=== PATIENT | male | born 1960 | race Caucasian/White ===

== ENCOUNTER 2016-09-15 09:07 | Inpatient (IN) | payer OTHER, MEDICAID ==
--- NOTE | 2016-09-15 09:30 | EDPHY ---
H & P HPI/ROS: CHIEF COMPLAINT: right leg pain and swelling HISTORY OF PRESENT ILLNESS: The Patient is a 55-year-old blind homeless male who presents to the emergency department with right leg pain and swelling. His pain is moderate. It does not radiate. He states that a few weeks ago he fell down some stairs and injured his right lower leg. Since that time he states he has fallen a few more times. Patient denies increasing pain in his right lower leg. Someone noticed that he had bleeding in his right lower extremity and called EMS. Patient denies fevers or chills. No cough or shortness of breath. No nausea or vomiting. Patient denies alcohol use. The patient recently saw smoking. He denies drug use. Patient denies any previous medical issues. He has not had any medical care for this wound. He states he would come in earlier but he did not see it because he was blind. REVIEW OF SYSTEMS: My complete review of systems is negative except as mentioned in the HPI. Past Medical/Surgical History: Denies Past surgical history: Denies Social history: The patient denies drugs or alcohol. He recently stopped smoking. The patient is homeless. Smoking Status: Heavy smoker Physical Exam: Vitals noted GENERAL: No acute distress, alert. HEENT: Normal pharynx, no signs of dehydration. NECK: Supple. Normal. RESPIRATORY: Clear to auscultation bilaterally, no rales, rhonchi or wheezing. CVS: Regular rhythm tachycardia, no rubs, murmurs, or gallops. ABDOMEN: Soft, nontender, nondistended. BACK: Normal to inspection, no CVA tenderness. SKIN: Normal color, no rash, warm, dry. No pallor. EXTREMITIES: Patient has a swollen right lower extremity. There is anterior macerated skin. This has deep, dark discoloration. There is surrounding tissue breakdown. The right lower extremity below the knee is tender to touch. There is no palpable cord. Patient's upper leg has no redness, streaking or tenderness palpation NEURO/PSYCH: Alert and oriented, normal mood and affect, normal motor sensory exam. Constitutional: Initial Vital Signs Temperature (C) 36.4 C 09/15/16 09:10 Heart Rate 123 H 09/15/16 09:10 Respiratory Rate 18 09/15/16 09:10 Blood Pressure 116/73 09/15/16 09:10 O2 Sat (%) 99 01/16/17 09:10 O2 Delivery Mode Nasal Cannula O2 (L/minute) 2 Allergies/Adverse Reactions: No Known Allergies Allergy (Verified 09/15/16 09:25) Home Medications: Medication Instructions Recorded NK [No Known Home Meds] 09/15/16 Medical Decision Making ED Course/Re-evaluation: In the emergency department I met EMS on arrival. I took report from the pattern changer. An IV was placed. Laboratory studies including cultures were obtained. Patient was noted to be tachycardic with are in the 120s. His blood pressure is 116/73. Staff finishing obtaining cultures. Ertapenem 1 g IV and vancomycin 1 g IV ordered. 1000: [place] [address]. When rechecked the patient. He is lying comfortably in his bed. His wound has been cleaned. Lactic acid is still pending. I discussed this with the nursing staff. It was just sent to the lab. Patient is now starting his 1st L of normal saline for hydration. I discussed case with the hospitalist service. Dr. Caldwell will accept the patient. He will go to step-down. Lactic acid came back elevated at 2.2. The patient is tachycardic with an elevated white count and elevated lactic acid. Severe sepsis was declared. The patient was given a total of 30 milliliters/kilogram of IV hydration. ( Initial NS 1 L plus additional order of NS 1.25 L). I discussed the case with Dr. Roni Mai. He infectious Disease will consult on the patient. I rechecked the patient. He has nearly completed his fluid bolus. I discussed with the nurse obtain lactic acid after the fluid is complete. Patient is still tachycardic. No new complaints. Ultrasound: Please refer to the dictated report by Dr. Parada. No DVT. There is a superficial vein occlusion. Patient does have fluid collection inferior to the patella anterior to the tibia. This could represent abscess. I paged general surgery and spoke with Dr. Wolfe. He will consult on the patient. Differential Diagnosis: My differential includes but is not limited to cellulitis, abscess, compartment syndrome, DVT, arterial occlusion, gas gangrene, bacteremia, sepsis Critical Care Time: Patient required 35 minutes of critical care time. This was exclusive of any on unbundled procedure. This was due the patient's significant extremity infection, abnormal vital signs, elevated lactic acid, need for frequent rechecks and admission to step-down unit. - Data Points Laboratory Results: Laboratory Results 09/15/16 09:00 09/15/16 09:00 09/15/16 09/15/16 09:50 09:00 WBC 37.90 H 10^3/uL (3.80-9.50) RBC 4.62 10^6/uL (4.40-6.38) Hgb 13.7 g/dL (13.7-17.5) Hct 39.5 L % (40.0-51.0) MCV 85.5 fL (81.5-99.8) MCH 29.7 pg (27.9-34.1) MCHC 34.7 g/dL (32.4-36.7) RDW 12.7 % (11.5-15.2) Plt Count 502 H 10^3/uL (150-400) MPV 9.2 fL (8.7-11.7) Neut % (Auto) Not Reported Lymph % (Auto) Not Reported [place] % (Auto) Not Reported Eos % (Auto) Not Reported Baso % (Auto) Not Reported Nucleat RBC Rel Count 0.0 % (0.0-0.2) Absolute Neuts (auto) Not Reported Absolute Lymphs (auto) Not Reported Absolute Monos (auto) Not Reported Absolute Eos (auto) Not Reported Absolute Basos (auto) Not Reported Absolute Nucleated RBC 0.00 10^3/uL (0-0.01) Immature Gran % Not Reported Seg Neutrophils % 39 % Band Neutrophils % 50 % Lymphocytes % 5 % Monocytes % 2 % Metamyelocytes % 3 % Myelocytes % 1 % Immature Gran # Not Reported Absolute Seg Neuts 14.78 H 10^/uL (1.70-6.50) Absolute Band Neuts 18.95 H 10^3/uL (0.00-0.70) Absolute Lymphocytes 1.90 10^3/uL (1.00-3.00) Absolute Monocytes 0.76 10^3/uL (0.30-0.80) Absolute Metamyelocyte 1.14 H 10^3/mL (0.00-0.00) Absolute Myelocytes 0.38 H 10^3/mL (0.00-0.00) RBC/WBC/PLT Morphology NORMAL (NORMAL) Platelet Estimate INCREASED H (ADEQ) Smear Review By Pending PT 17.1 H SEC (12.0-15.0) INR 1.40 H (0.83-1.16) APTT 33.6 SEC (23.0-38.0) VBG Lactic Acid 2.2 H mmol/L (0.7-2.1) Sodium 131 L mEq/L (134-144) Potassium 4.5 mEq/L (3.5-5.2) Chloride 94 L mEq/L (97-110) Carbon Dioxide 22 mEq/l (22-31) Anion Gap 15 mEq/L (8-16) BUN 62 H mg/dL (7-23) Creatinine 1.6 H mg/dL (0.7-1.3) Estimated GFR 45 Glucose 106 H mg/dL (70-100) Calcium 9.1 mg/dL (8.5-10.4) Total Bilirubin 1.0 mg/dL (0.1-1.4) Medications Given: Discontinued Medications Vancomycin/Sodium Chloride (Vancomycin 1 Gm (Premix)) 250 mls @ 250 mls/hr IV EDNOW ONE PRN Reason: Protocol Stop: 09/15/16 11:00 Last Admin: 09/15/16 10:15 Dose: 250 mls Sodium Chloride (Ns) 1,000 mls @ 0 mls/hr IV ONCE ONE PRN Reason: Wide Open Stop: 09/15/16 10:07 Last Admin: 09/15/16 10:00 Dose: 1,000 mls Sodium Chloride (Ns *For Sepsis Order Set Only*) 1,250 ml IV EDNOW ONE Stop: 09/15/16 10:14 Last Admin: 09/15/16 10:22 Dose: 1,250 ml Departure - Departure Disposition: [facility] Inpatient Acute Clinical Impression: Cellulitis Condition: Fair
[2016-09-15 09:35] LABS: ADD DIFF? YES; ADD MORPH? NO; FRAGMENT RBC FLAG 0 (0-99); HEMATOCRIT 39.5 % (40.0-51.0); HEMOGLOBIN 13.7 g/dL (13.7-17.5); LIPEMIA HEMOLYSIS FLAG 90 (0-99); MEAN CELL HEMOGLOBIN 29.7 pg (27.9-34.1); MEAN CELL HEMOGLOBIN CONCENTR. 34.7 g/dL (32.4-36.7); MEAN CELL VOLUME 85.5 fL (81.5-99.8); MEAN PLATELET VOLUME 9.2 fL (8.7-11.7); PLATELET CLUMPS FLAG 30 (0-99); PLATELET COUNT 502 10^3/uL (150-400); RED BLOOD CELL COUNT 4.62 10^6/uL (4.40-6.38); RED CELL DISTRIBUTION WIDTH 12.7 % (11.5-15.2)
[2016-09-15 09:40] LABS: ATYPICAL LYMPHOCYTE FLAG 180 (0-99); INR 1.4 (0.83-1.16); LEFT SHIFT FLG 300 (0-99); PROTIME(PATIENT) 17.1 SEC (12.0-15.0)
[2016-09-15 09:41] LABS: APTT 33.6 SEC (23.0-38.0)
[2016-09-15 09:46] LABS: ANION GAP 15 mEq/L (8-16); CALCIUM 9.1 mg/dL (8.5-10.4); CARBON DIOXIDE 22 mEq/l (22-31); CHLORIDE 94 mEq/L (97-110); CREATININE 1.6 mg/dL (0.7-1.3); GLOMERULAR FILTRATION RATE 45; GLUCOSE 106 mg/dL (70-100); POTASSIUM 4.5 mEq/L (3.5-5.2); SODIUM 131 mEq/L (134-144)
[2016-09-15] MEDS ORDERED: VANCOMYCIN HCL/NORMAL SALINE 250 ML IV ONE (10:01)
[2016-09-15] MEDS ORDERED: ERTAPENEM 1 GM in NS 100 ML IV ONE (10:01)
[2016-09-15] MEDS ORDERED: NS 1,000 ML IV ONE (10:06)
[2016-09-15 10:13] LABS: PLATELET ESTIMATE INCREASED (ADEQ)
[2016-09-15] MEDS ORDERED: NS 1,000 ML BAG *FOR SEPSIS ORDER SET ONLY IV ONE (10:13)
--- NOTE | 2016-09-15 11:09 | US ---
Right Lower Extremity Ultrasound and Venous Duplex Doppler Study History: Cellulitis. Comparison: None available. Technique: High frequency transducer was used for imaging and Doppler study of the veins of the lowe r extremity. Pulsed Doppler and color Doppler were utilized, along with various maneuvers to assess flow in the veins. Findings: The deep veins of the lower extremity are normally compressible between the groin and the upper calf and have normal Doppler waveforms within them. There is thrombosis of the greater sapheno us vein at the level of the knee. There is a subcutaneous anterior fluid collection inferior to the p atella measuring approximately 10.9 cm in craniocaudal diameter. Impression: 1. Superficial thrombophlebitis in the greater saphenous vein at the level of the knee. 2. No evidence of deep vein thrombosis. 3. Subcutaneous fluid collection inferior to the patella, which could be related to abscess or hemato ma. Findings discussed with Adriana Corbett today at 1105 hours.
[2016-09-15] MEDS ORDERED: NS 1,000 ML IV SCH (13:45)
--- NOTE | 2016-09-15 14:03 | GCON ---
[f rep st] CONSULTATION DATE OF CONSULTATION: 09/15/2016 CHIEF COMPLAINT: Right lower extremity pain. HISTORY OF PRESENT ILLNESS: This is a 55-year-old blind, homeless, male who presented to the emergency department earlier today after he was assessed by what appears to be local police and, after seeing his leg, EMS was called and he was subsequently brought here. Here in the emergency department, he does endorse falling a few times and having pain on that side for about the last month, but given the fact that he is blind and has limited access to facilities , really sought no treatment at that point in time. He denies having overall fevers and chills, and states that overall feels fine; however, does endorse significant amount of pain in that right lower leg area. He does endorse falling in the past as he is blind and hitting both lower extremities, but denies ever having any instrumentation or surgeries on either lower extremity, and denies any history of IV drug abuse. In the emergency department, he was found to have a white blood cell count elevated to 37,000 and did have an ultrasound performed, which showed a significant fluid collection measuring 11 cm in greatest dimension in that right lower extremity. PAST MEDICAL HISTORY: Significant for blindness and remote history of schizophrenia for which he does not take current medications. PAST SURGICAL HISTORY: He endorses some orthopedic procedure done remotely in the past after a trauma, for which he is unclear as to what this was. CURRENT MEDICATIONS: None. SOCIAL HISTORY: Denies drugs. Denies alcohol. Recently quit tobacco. Denies any illicit drug use. He is homeless. REVIEW OF SYSTEMS: A full 10-point review was performed and unless explicitly stated otherwise above is negative. PHYSICAL EXAM: VITAL SIGNS: Temperature 36.8, blood pressure 105/53, heart rate 108, respirations 22. He is 100% on 2 L. GENERAL: He is alert and oriented, in no acute distress. CV: He is tachycardic. No murmurs appreciate. LUNGS: Clear. ABDOMEN: Soft, nondistended. No previous scars. EXTREMITIES : His right lower leg just inferior to the patella is significantly indurated and fluctuant. The overlying skin does have some areas which appear necrotic. The distal foot appears well perfused. He does have palpable pulses and sensation is intact. LABS: White blood cell count of 37,000, H and H stable at 14 and 39. Coags: INR 1.4. Chemistries: Elevated creatinine at 1.6, low sodium at 131. IMAGING: Included an ultrasound of the right lower extremity, which shows an 11 cm fluid collection in greatest dimension in the anterior tibial space of the right lower extremity. ASSESSMENT AND PLAN: A 55-year-old male with right lower extremity abscess. I discussed with the patient my recommendations. Given the fact that he has such a significant amount of induration and fluid, I do not feel that this is something that would be drainable at the bedside. I counseled him that my recommendation would be to take him to the operating room and under a general anesthetic, open the area up. I did tell him that this would be a long, drawn out process with wound care given the significant size of the wound. He understands this and wishes to proceed. /[id number]/MODL MTDD
[2016-09-15] MEDS ORDERED: BUPIVACAINE 0.5% 30 ML SDV ONE (14:30)
[2016-09-15] MEDS ORDERED: POLYMYXIN B SULFATE 500,000 UNIT/10 ML SYR IRR ONE (14:30)
[2016-09-15] MEDS ORDERED: PROPOFOL 200 MG/20 ML VIAL ONE (14:45)
[2016-09-15] MEDS ORDERED: fentaNYL 100 MCG/2 ML INJ ONE ×3 (14:45→15:21)
[2016-09-15] MEDS ORDERED: epHEDrine SULFATE 10 MG/ML SYR ONE (14:53)
[2016-09-15] MEDS ORDERED: ONDANSETRON 4 MG/2 ML VIAL ONE (15:07)
[2016-09-15] MEDS ORDERED: DEXAMETHASONE 4 MG/ML VIAL ONE (15:07)
[2016-09-15] MEDS ORDERED: HYDROmorphONE/DILAUDID 2 MG/ML SYR ONE (15:27)
[2016-09-15] MEDS ORDERED: THROMBIN (RECOMBINANT) 5,000 UNIT VIAL TP ONE (15:28)
--- NOTE | 2016-09-15 16:10 | POSTOPPROG ---
Post Op Note Date of Operation: 09/15/16 Surgeon: Georges Wolfe Bias Binding Cutter: Everette Anesthesiologist: Philippe Anesthesia: GET(General Endotracheal) Pre-op Diagnosis: RLE Abscess Post-op Diagnosis: Same Procedure: RLE Incision and drainage Findings: [id number] area of skin removed, fascia removed underneath Inf/Abcess present in the surg proc area at time of surgery?: Yes Depth: Deep Incisional (Fascial) EBL: 50-100 Specimen(s): RLE fluid for culture
[2016-09-15] MEDS ORDERED: HYDROmorphONE/DILAUDID 1 MG/ML SYR IVP PRN (16:11)
--- NOTE | 2016-09-15 17:05 | GOP ---
[f rep st] OPERATIVE REPORT DATE OF OPERATION: 09/15/2016 SURGEON: Georges Wolfe MD HANDBAG FRAMES INSPECTOR: RONEY Barahona ANESTHESIA: General endotracheal. ANESTHESIOLOGIST: Dr. Paez PREOPERATIVE DIAGNOSIS: Right lower extremity abscess. POSTOPERATIVE DIAGNOSIS: Right lower extremity abscess. PROCEDURE PERFORMED: Incision and drainage of 15 x 20 cm right lower extremity extending down through the fascia into the muscle. FINDINGS: Large subcutaneous abscess with underlying necrotic muscle and fascia debrided to good bleeding tissue. Cultures taken. SPECIMENS: Fluid taken for gram stain and culture DESCRIPTION OF PROCEDURE: The patient was greeted in the preoperative area and once again, risks, benefits, and alternatives were discussed. Consent was signed. He was then brought back to the operative suite, placed on the OR table in the supine position. After all anesthesia machines were on and functioning, a [employer] timeout was performed. General endotracheal anesthesia was then induced without incident. The patient's right lower extremity was then prepped to the level above the knee. After a successful prep, he was draped in the typical sterile fashion. I turned my attention towards the area where it was frankly necrotic on the anterior portion of the right lower extremity at the midportion of the lower leg. I made an incision. The skin did not readily bleed. I evacuated a significant amount of purulent fluid from this. After evacuating the fluid, I deepened my incision. It was clear that just deep to this, a significant amount of fascia and muscle were necrotic. I debrided this down to good, bleeding, healthy muscle. It appeared that from where I made my incision, the abscess cavity did extend cranially; however, the skin at this point in time did appear viable it bled and blanched to minimal palpation. I elected not to remove the skin, but irrigated out the cavity and did debride some muscle from this area as well. I debrided the visible space all the way down to good, bleeding tissue. Using a Pulsavac and 3 L normal sterile saline, I irrigated out the area. Hemostasis was achieved with a combination of gentle pressure, thrombin, and 3- 0 Vicryl stitches on the skin edges for which some venous tributaries were oversewn. After hemostasis was achieved, I packed the area with wet Kerlix. I covered it with sterile ABDs and then wrapped it with another dry, sterile Kerlix and placed it upon 2 pillows to give it some gentle elevation. The patient was then extubated and taken to the PACU in satisfactory condition. DRAINS: None. COMPLICATIONS: None. COUNTS: All counts reported as correct x2. /[id number]/MODL MTDD
[2016-09-15] MEDS ORDERED: PROMETHAZINE HCL 25 MG/ML INJ IVP PRN (18:16)
[2016-09-15] MEDS ORDERED: ONDANSETRON 4 MG/2 ML VIAL IVP PRN (18:16)
[2016-09-15] MEDS ORDERED: ACETAMINOPHEN 325 MG TAB PO PRN (18:16)
--- NOTE | 2016-09-15 19:10 | GHP ---
[f rep st] HISTORY AND PHYSICAL DATE OF ADMISSION: 09/15/2016 CHIEF COMPLAINT: Leg pain. HISTORY: The patient is a 55-year-old, blind, homeless male who was being evaluated by police today, and they noticed that his leg looked very poor. He does complain of leg pain for the last month; ho wever, he is blind, and he is unable to look at the leg visually. Reportedly, he fell down the stair s and caused an injury to the leg a few weeks ago. Over the last month, he has been having recurrent falls. In the emergency room, he was noted to have a severe infection of the right leg, with severe sepsis, and General Surgery was emergently consulted and brought him to the operating room. He was found to have a right lower extremity abscess, for which he underwent incision and drainage by Dr. Wolfe. The abscess was found to go through the fascia and into the muscle. I am currently seeing the matt ent in the PACU post surgery, and history is limited by sedation. PAST MEDICAL HISTORY: 1. Blindness. 2. Schizophrenia. MEDICATIONS: Please see computer record for full detailed list. ALLERGIES: No known drug allergies. SOCIAL HISTORY: No smoking, although he recently quit. No alcohol. Homeless. REVIEW OF SYSTEMS: Complete review of systems obtained. Review of systems is negative for constitut ional, HEENT, GI, pulmonary, cardiovascular, , hematology, skin, musculoskeletal, endocrine, psych, except for positives and pertinent negatives, which were listed as under HPI. Please note that revi ew of systems is limited by patient's sedation in his postoperative state. FAMILY HISTORY: Reviewed and noncontributory to current complaint. PHYSICAL EXAMINATION: GENERAL: Well-developed, well-nourished male, no acute distress. VITAL SIGNS : Temperature is 36.8, pulse 123, blood pressure 105/53, saturating 99% on 2 L. HEENT: Eye examina tion: Normal conjunctivae. No scleral icterus. ENT: Hearing appears intact. Oropharynx dry. NECK : Trachea midline. No thyromegaly. CHEST: Normal respiratory effort. LUNGS: Clear to auscultatio n bilaterally. CARDIOVASCULAR: Tachycardic. Lower extremity edema only on the right associated wit h infection. ABDOMEN: Soft, nontender. No hepatosplenomegaly. SKIN: Right lower extremity has ex tensive erythema with a large postoperative dressing, which was not removed, very poor hygiene to his feet. MUSCULOSKELETAL: No cyanosis or clubbing. Strength appears 5/5, equal bilaterally. NEURO: Cranial nerves grossly intact. Normal sensation to light touch. PSYCH: Awake, alert, oriented, ap propriate, slightly sedated, arouses easily. Seems to have okay memory. LABS: White count 37.9, with 50% bands. 39.5. Platelets 502, sodium 131, potassium 4.5, chloride 94, bicarb 22, BUN 62, creatinine 1.6, glucose 106. INR is 1.4. Lactate was initially 2.2 , decreasing to 1.6 after IV fluid bolus in the emergency room. ASSESSMENT/PLAN: 1. Right lower extremity deep infection, with abscess and cellulitis. Status post incision and juancho jacques with the infection found to go through the fascia, into the muscle. Will continue empiric vanco mycin and Invanz as started in the emergency room. Will consult Infectious Disease. 2. Severe sepsis. His blood pressure is okay at this point, but he will be monitored closely in the step-down unit as he does have risk for hypotension this evening. Will continue aggressive IV fluid s. Will follow lactate. 3. Acute renal failure. Hopefully, this will improve with IV fluid resuscitation and will recheck i n the morning. 4. Schizophrenia. This is untreated. 5. Blindness. This will clearly impact his disposition. Will mobilize early with PT/OT when he is medically stabilized. CODE STATUS: Full. ADMISSION STATUS: 1. Will admit to inpatient as he is critically ill and will definitely need more than 2 midnights fo r stabilization of above. 2. DVT prophylaxis: He is high risk. Will place him on subcu Lovenox. /[id number]/MODL
--- NOTE | 2016-09-15 19:52 | CPEKG ---
Heart Rate: 106 RR Interval: 566 P-R Interval: 148 QRSD Interval: 100 QT Interval: 328 QTC Interval: 436 P Roscoe: 55 QRS Roscoe: 78 T Wave Roscoe: -4 EKG Severity - BORDERLINE ECG - EKG Impression: SINUS TACHYCARDIA EKG Impression: BORDERLINE INFERIOR Q WAVES EKG Impression: BORDERLINE T ABNORMALITIES, INFERIOR LEADS Electronically Signed By: Levi Keita 16-Sep-2016 17:21:04
[2016-09-15] MEDS ORDERED: VANCOMYCIN 1.25 GM in D5W 250 ML IV SCH (21:00)
[2016-09-16 06:44] LABS: ADD DIFF? YES; ADD MORPH? NO; FRAGMENT RBC FLAG 0 (0-99); HEMATOCRIT 29.8 % (40.0-51.0); HEMOGLOBIN 9.9 g/dL (13.7-17.5); LIPEMIA HEMOLYSIS FLAG 80 (0-99); MEAN CELL HEMOGLOBIN 29.6 pg (27.9-34.1); MEAN CELL HEMOGLOBIN CONCENTR. 33.2 g/dL (32.4-36.7); MEAN PLATELET VOLUME 9.1 fL (8.7-11.7); PLATELET CLUMPS FLAG 10 (0-99); PLATELET COUNT 359 10^3/uL (150-400); RED BLOOD CELL COUNT 3.35 10^6/uL (4.40-6.38); RED CELL DISTRIBUTION WIDTH 12.9 % (11.5-15.2)
[2016-09-16 06:49] LABS: ADD SCAN? NO; ATYPICAL LYMPHOCYTE FLAG 170 (0-99); LEFT SHIFT FLG 300 (0-99)
[2016-09-16 07:15] LABS: PLATELET ESTIMATE ADEQUATE (ADEQ); TOXIC GRANULATION PRESENT
--- NOTE | 2016-09-16 07:15 | DX ---
Portable Chest September 15, 2016 2346 hours History: Productive cough. Comparison: November 12, 2015. Findings: Frontal view (only) shows clear lungs and no masses. Heart size and pulmonary vessels appear normal. No evidence of pleural effusion. Impression: Negative frontal chest radiograph. MTDD
[2016-09-16 07:16] LABS: ALANINE AMINOTRANSFERASE 48 IU/L (21-72); ALBUMIN 1.7 g/dL (3.5-5.0); ALKALINE PHOSPHATASE 95 IU/L (38-126); ANION GAP 6 mEq/L (8-16); ASPARTATE AMINOTRANSFERASE 60 IU/L (17-59); BILIRUBIN,TOTAL 0.5 mg/dL (0.1-1.4); BILIRUBIN-CONJUGATED 0.4 mg/dL (0.0-0.5); BILIRUBIN-UNCONJUGATED 0.1 mg/dL (0.0-1.1); CALCIUM 7.6 mg/dL (8.5-10.4); CARBON DIOXIDE 26 mEq/l (22-31); CHLORIDE 105 mEq/L (97-110); CREATININE 0.9 mg/dL (0.7-1.3); GLOMERULAR FILTRATION RATE > 60; GLUCOSE 178 mg/dL (70-100); MAGNESIUM 2.4 mg/dL (1.6-2.3); POTASSIUM 4.2 mEq/L (3.5-5.2); SODIUM 137 mEq/L (134-144); TOTAL PROTEIN 4.7 g/dL (6.3-8.2)
--- NOTE | 2016-09-16 08:53 | CPEKG ---
Heart Rate: 64 RR Interval: 938 P-R Interval: 148 QRSD Interval: 104 QT Interval: 376 QTC Interval: 388 P Nottingham: 59 QRS Nottingham: 79 T Wave Nottingham: 35 EKG Severity - BORDERLINE ECG - EKG Impression: SINUS RHYTHM EKG Impression: BORDERLINE INFERIOR Q WAVES Electronically Signed By: Levi Keita 16-Sep-2016 17:20:57
[2016-09-16] MEDS: ENOXAPARIN 40 MG/0.4 ML SYR SC SCH (09:00)
[2016-09-16] MEDS ORDERED: CLINDAMYCIN 600 MG/DEXTROSE 50 ML IV SCH (09:00)
[2016-09-16] MEDS: ERTAPENEM 1 GM in NS 100 ML IV SCH (09:00)
--- NOTE | 2016-09-16 09:40 | DX ---
AP Upright Chest. Clinical Indication Sepsis. Today 0558. Comparison September 15, 2016 at 2345 hours. FINDINGS: There is some peribronchial cuffing present. There is some retrocardiac patchy atelectatic change. Heart size is normal. Pulmonary vasculature remains distinct. Impression Mild airways disease with some retrocardiac atelectatic changes.
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
--- NOTE | 2016-09-16 10:21 | GCON ---
[f rep st] CONSULTATION INPATIENT INFECTIOUS DISEASE CONSULTATION. DATE OF CONSULTATION: 09/15/2016 REFERRING PHYSICIAN: Татьяна Caldwell MD REASON FOR REFERRAL: Right lower extremity cellulitis and abscess. HISTORY OF PRESENT ILLNESS: Patient is a 55-year-old homeless male, who is blind, who was transporte d by the police to the emergency room today due to the appearance of his right lower extremity. The p atient stated upon admission that for the last month he had intermittent right leg pain. Apparently, the patient has fallen occasionally over the last number of weeks. The patient was noted upon initial evaluation in the emergency room to have a severely swollen right lower extremity. He qualified for sepsis protocol. He was seen by General Surgery emergently, and was brought to the operating room lat er on this afternoon. The patient underwent an ultrasound in the emergency room which revealed a sign ificant fluid collection within his right lower extremity. He underwent incision and drainage by [facility]. Currently, he is resting in the PACU. He is able to the answer questions briefly, althou gh he is not terribly verbal. PAST MEDICAL HISTORY: 1. Schizophrenia, currently on no medications. 2. Blindness, unclear etiology. PAST SURGICAL HISTORY: Status post incision and drainage, right lower extremity. ANTIBIOTICS: 1. Vancomycin. 2. Ertapenem. ALLERGIES: Patient has no known drug allergies. SOCIAL HISTORY: The patient has a history of tobacco use. Denies alcohol or drug use. He is homeless . FAMILY HISTORY: Reviewed, but noncontributory. REVIEW OF SYSTEMS: Other than that detailed above in History of Present Illness, a comprehensive 10- system review is negative. PHYSICAL EXAMINATION: VITAL SIGNS: Temperature is 36.8, heart rate 123, respiratory rate 14, blood p ressure is 105/53. GENERAL: The patient is a well-formed, well-nourished, middle-aged male appearing older than his stated age. He is alert and oriented x3. He is in a pleasant demeanor. HEENT: Normocep halic for age. Atraumatic. No scleral icterus. No oral lesion or drainage from the nares. Eyes: Lids and conjunctivae are within normal limits. Pupils are equal. NECK: Supple without meningismus. LUNGS: Clear to auscultation bilaterally. Good effort. HEART: Tachycardic with a regular rhythm. No murmur, rub, or gallop noted. The patient has right lower extremity peripheral edema. Left lower extremity i s normal in size. SKIN: Warm and dry to the touch. No rash noted. Lower extremity skin has erythema t hat is confluent over the distal aspect of the right lower extremity. The patient's feet are dishevel ed and dirty and in a poor state of cleanliness. He is able to sense touch in both feet. The feet are warm. MUSCULOSKELETAL: No other muscle belly tenderness is noted. No joint line effusion or arthriti s is seen. NEURO: Cranial nerves 2 through 12 seem to be intact excepting for the optic nerve. Periph eral sensation is intact in all extremities. LABORATORY DATA: The patient has a CBC dated 09/15/2016. White blood cell count is 37.9, hemoglobin is 13.7, hematocrit of 39.5, platelet count 502. Differential white cell count shows significant left shift, 39% segmented neutrophils, 50% band forms. Serum chemistries on 09/15/2016, shows sodium 131, potassium 4.5, chloride of 94, bicarbonate of 22, BUN of 62, creatinine of 1.6. ASSESSMENT: Severe right lower extremity with cellulitis with abscess. Status post incision and drai nage. Most likely causes here are staphylococci and streptococci. Patient is currently covered on bot h vancomycin and ertapenem. Vancomycin clearly covers the above-mentioned genii. However, ertapenem i s reasonable given the state of cleanliness and lower extremity location just in case this is a low p robability gram-negative or anaerobic infection. We will monitor his blood cultures and clinical stat us. At this point, will not make any changes in the initial empiric choice of coverage. PLAN: 1. Continue both vancomycin and ertapenem. 2. Follow blood and abscess fluid culture results. 3. Follow clinical course and vital signs. /[id number]/MODL
--- NOTE | 2016-09-16 10:48 | SOAPPROG ---
SOAP Progress Note Assessment/Plan: Assessment/Plan - 55yo M POD#1 s/p RLE debridement for necrotizing soft tissue infection - WBC improved overnight, minimal drainage from site - Small portion on inferomedial portion will likely need further debridement but majority of muscle bed appears beefy red and overall viable. Superior skin under which abscess tracked is viable as well. Changed dressing at bedside which he tolerated remarkably well. Will plan addl dressing change tomorrow, repeat OR for repeat debridement and likely VAC placement at that time. OK for reg diet in meantime. NPO night. 09/16/16 10:44 Subjective: Minimal pain, states that he overall feels well. Objective: Vital Signs Temp Pulse Resp BP Pulse Ox 36.6 C 78 18 97/50 L 100 09/16/16 08:09 09/16/16 08:09 09/16/16 08:09 09/16/16 08:09 09/16/16 08:09 Microbiology 09/15/16 15:15 Gram Stain - Final Leg - Eswab 09/15/16 15:15 Gram Stain - Final Leg - Eswab Laboratory Results 09/16/16 06:23 09/16/16 06:23 09/15/16 09/16/16 09/17/16 05:59 05:59 05:59 Intake Total 6592 Balance 6592 PT 17.1 SEC (12.0-15.0) H 09/15/16 09:00 INR 1.40 (0.83-1.16) H 09/15/16 09:00 ICD10 Worksheet Patient Problems: Problems Problem Status Diagnosed Cellulitis Acute Knee contusion Acute
[2016-09-16] MEDS: CLINDAMYCIN 600 MG/DEXTROSE 50 ML IV SCH ×3 (12:23→21:06)
--- NOTE | 2016-09-16 14:42 | HOSPPROG ---
Hospitalist Progress Note Assessment/Plan: * Severe sepsis - improved - BC + GAS -BP stable, lactate normal - pressors averted * Necrotizing soft tissue infection of leg - GAS -s/p I&D necrotic material extending through fascia into muscle -will need further debridement - schedule for -clinpepe, polinaanz * ARF - resolved * Homeless/blind * Schizophrenia - untreated Subjective: No complaints, minimal pain Objective: Vital Signs Temp Pulse Resp BP Pulse Ox 36.5 C 73 22 H 100/60 100 09/16/16 12:00 09/16/16 12:00 09/16/16 12:00 09/16/16 12:00 09/16/16 12:00 Microbiology 09/15/16 15:15 Gram Stain - Final Leg - Eswab 09/15/16 15:15 Gram Stain - Final Leg - Eswab Laboratory Results 09/16/16 06:23 09/16/16 06:23 09/15/16 09/16/16 09/17/16 05:59 05:59 05:59 Intake Total 6592 Balance 6592 PT 17.1 SEC (12.0-15.0) H 09/15/16 09:00 INR 1.40 (0.83-1.16) H 09/15/16 09:00 - Physical Exam Constitutional: no apparent distress, appears nourished, not in pain Cardiovascular: regular rate and rhythym, no murmur, rub, or gallop Respiratory: no respiratory distress, no rales or rhonchi, clear to auscultation Gastrointestinal: normoactive bowel sounds, soft, non-tender abdomen, no palpable masses Skin: no rashes or abrasions, no fluctuance, no induration Neurologic: AAOx3, sensation intact bilaterally Psychiatric: interacting appropriately, not anxious, not encephalopathic, thought process linear ICD10 Worksheet Patient Problems: Problems Problem Status Diagnosed Cellulitis Acute Knee contusion Acute
--- NOTE | 2016-09-16 15:31 | CPEKG ---
Heart Rate: 83 RR Interval: 723 P-R Interval: 144 QRSD Interval: 100 QT Interval: 356 QTC Interval: 419 P Harris: 62 QRS Harris: 78 T Wave Harris: 38 EKG Severity - BORDERLINE ECG - EKG Impression: SINUS RHYTHM EKG Impression: BORDERLINE INFERIOR Q WAVES Electronically Signed By: Levi Keita 16-Sep-2016 17:20:52
[2016-09-16 19:38] LABS: HEMATOCRIT 27.2 % (40.0-51.0); HEMOGLOBIN 9.1 g/dL (13.7-17.5); MEAN CELL HEMOGLOBIN 29.7 pg (27.9-34.1); MEAN CELL HEMOGLOBIN CONCENTR. 33.5 g/dL (32.4-36.7); MEAN CELL VOLUME 88.9 fL (81.5-99.8); RED BLOOD CELL COUNT 3.06 10^6/uL (4.40-6.38); RED CELL DISTRIBUTION WIDTH 12.9 % (11.5-15.2)
[2016-09-16] MEDS ORDERED: NS 500 ML IV ONE (20:26)
[2016-09-16] MEDS ORDERED: NS BOLUS 500 ML (Wide open) IV ONE (21:00)
[2016-09-17 04:52] LABS: ADD DIFF? YES; ADD MORPH? NO; ADD SCAN? NO; ATYPICAL LYMPHOCYTE FLAG 180 (0-99); FRAGMENT RBC FLAG 0 (0-99); HEMATOCRIT 26.6 % (40.0-51.0); HEMOGLOBIN 8.7 g/dL (13.7-17.5); LEFT SHIFT FLG 80 (0-99); LIPEMIA HEMOLYSIS FLAG 80 (0-99); MEAN CELL HEMOGLOBIN 29.3 pg (27.9-34.1); MEAN CELL HEMOGLOBIN CONCENTR. 32.7 g/dL (32.4-36.7); MEAN CELL VOLUME 89.6 fL (81.5-99.8); MEAN PLATELET VOLUME 9.2 fL (8.7-11.7); PLATELET CLUMPS FLAG 0 (0-99); PLATELET COUNT 353 10^3/uL (150-400); RED BLOOD CELL COUNT 2.97 10^6/uL (4.40-6.38); RED CELL DISTRIBUTION WIDTH 13.1 % (11.5-15.2)
[2016-09-17] MEDS: NS 1,000 ML IV SCH ×3 (05:09→18:08)
[2016-09-17] MEDS: CLINDAMYCIN 600 MG/DEXTROSE 50 ML IV SCH ×3 (05:09→21:25)
[2016-09-17 05:34] LABS: ANION GAP 6 mEq/L (8-16); CALCIUM 7.4 mg/dL (8.5-10.4); CARBON DIOXIDE 22 mEq/l (22-31); CHLORIDE 108 mEq/L (97-110); CREATININE 0.7 mg/dL (0.7-1.3); GLOMERULAR FILTRATION RATE > 60; GLUCOSE 91 mg/dL (70-100); POTASSIUM 4.9 mEq/L (3.5-5.2); SODIUM 136 mEq/L (134-144)
[2016-09-17 05:42] LABS: PLATELET ESTIMATE ADEQUATE (ADEQ)
[2016-09-17] MEDS ORDERED: NS 1,000 ML IV ONE (07:00)
[2016-09-17] MEDS: ENOXAPARIN 40 MG/0.4 ML SYR SC SCH (08:04)
[2016-09-17] MEDS: ERTAPENEM 1 GM in NS 100 ML IV SCH (08:05)
[2016-09-17] MEDS ORDERED: ALTEPLASE 2 MG VIAL IVP PRN ×2 (10:11→10:44)
[2016-09-17 11:51] LABS: ADD DIFF? YES; ADD MORPH? NO; FRAGMENT RBC FLAG 0 (0-99); HEMATOCRIT 26.9 % (40.0-51.0); HEMOGLOBIN 8.8 g/dL (13.7-17.5); LEFT SHIFT FLG 80 (0-99); LIPEMIA HEMOLYSIS FLAG 80 (0-99); MEAN CELL HEMOGLOBIN 29.5 pg (27.9-34.1); MEAN CELL HEMOGLOBIN CONCENTR. 32.7 g/dL (32.4-36.7); MEAN CELL VOLUME 90.3 fL (81.5-99.8); PLATELET CLUMPS FLAG 0 (0-99); PLATELET COUNT 346 10^3/uL (150-400); RED BLOOD CELL COUNT 2.98 10^6/uL (4.40-6.38); RED CELL DISTRIBUTION WIDTH 13.2 % (11.5-15.2)
[2016-09-17 11:54] LABS: ATYPICAL LYMPHOCYTE FLAG 160 (0-99); MIXED VENOUS O2 SATURATION 70 % (65-75)
[2016-09-17 11:55] LABS: ADD SCAN? NO
--- NOTE | 2016-09-17 11:57 | GCON ---
[f rep st] CONSULTATION AFFILIATE MARKETING SPECIALIST CONSULTATION DATE OF CONSULTATION: 09/17/2016 REASON FOR ADMISSION: Sepsis, cellulitis. HISTORY OF PRESENT ILLNESS: The patient is an unfortunate 55-year-old white male with extensive past medical history including blindness, schizophrenia. He is also homeless. He was brought in by the police after they noticed that his leg looked poorly. He apparently had fallen down some stairs some time weeks earlier, causing injury to the leg. He was brought to the emergency room, found to have a severe infection of the right leg with severe sepsis. He went to the operating room for incision an d drainage. Infectious Disease has been consulted. He was initially admitted to Step-Down Unit. Wi ll transfer to the Intensive Care Unit today secondary to hypotension. PAST MEDICAL HISTORY: Again, significant for schizophrenia and blindness, as well as homelessness. ALLERGIES: No known allergies to medications. SOCIAL HISTORY: Previous tobacco use. None recently. No significant alcohol use. Again, he is edinson eless. CURRENT MEDICATIONS: Include clindamycin, hydromorphone, ertapenem, Lovenox, oxycodone, promethazine , Tylenol, ondansetron, and morphine. PHYSICAL EXAM: VITAL SIGNS: Blood pressure is 82/47, pulse is 60, respirations 24, temperature 36.9 , oxygen saturation 98% on 2 L. GENERAL: He is a well-developed, 55-year-old white male who looks o lder than his stated age. HEENT: Eyes are PERRL, EOMI. Throat shows no erythema or tonsillar hyper trophy. NECK: Supple. No cervical adenopathy. HEART: Regular rate and rhythm with a 2/6 systolic murmur at the left sternal border without radiation. LUNGS: Diminished breath sounds, but no wheez e. ABDOMEN: Soft, nontender. Bowel sounds are present in all 4 quadrants. EXTREMITIES: Right low er extremity is bandaged. LABORATORIES: White count 23.8, hemoglobin 8.7, hematocrit 26, platelet count is 353. Sodium 136, p otassium 4.9, chloride 108, CO2 is 22, BUN 35, creatinine 0.7, glucose is 91. Influenza A and B are negative. Blood cultures have grown out Streptococcus pyogenes group A. Culture of the leg wound again shows Streptococcus pyogenes group A, as well as Streptococcus dysgala ctiae group C and G. IMPRESSION: 1. Streptococcus pyogenes group A cellulitis. 2. Sepsis. 3. Blindness. 4. Schizophrenia. 5. Respiratory, currently stable. RECOMMENDATIONS: 1. Again, will transfer patient to Intensive Care Unit. 2. Aggressive fluid resuscitation. 3. IV antibiotics per Infectious Disease. 4. Surgery has seen the patient and will follow closely, likely will head back to the operating room soon. 5. DVT and PE prophylaxis. 6. Stress ulcer prophylaxis. 7. Adequate pain control. Thank you very much. /[id number]/MODL
[2016-09-17 12:12] LABS: INR 1.21 (0.83-1.16); PROTIME(PATIENT) 15.3 SEC (12.0-15.0)
[2016-09-17 12:13] LABS: APTT 35.7 SEC (23.0-38.0)
--- NOTE | 2016-09-17 12:14 | PCMIDPN ---
Assessment/Plan: Assessment/Plan: * Right lower extremity necrotizing fasciitis/abscess due to GAS (Group A strep ) with concomitant GAS bacteremia: Suspect GAS primary driver merchandiser of process. Initial culture obtained in ED also with MSSA, GNR and Group C/G strep with operative culture only showing GAS. Other pathogens may represent colonization rather than true contributors to presentation. Will modify antibiotics to ancef , clindamycin and levofloxacin pending additional culture data. If hypotension does not improve with IVF, will proceed with IVIG as may have benefit for severe invasive GAS infection. Plans for repeat debridement tomorrow - wound examined with Dr. Mejia without evidence of significant necrosis present. * Cough: Will check flu PCR to be sure no evidence of influenza (DFA negative). 09/17/16 12:09 Subjective: Patient complains of cough and right lower extremity pain. Developed hypotension overnight. Objective: Vital Signs Temp Pulse Resp BP Pulse Ox 36.9 C 60 24 H 82/47 L 98 09/17/16 07:57 09/17/16 10:00 09/17/16 10:00 09/17/16 10:00 09/17/16 10:00 Microbiology 09/15/16 15:15 Gram Stain - Final Leg - Eswab 09/15/16 15:15 Gram Stain - Final Leg - Eswab Laboratory Results 09/17/16 11:40 09/16/16 09/17/16 09/18/16 05:59 05:59 05:59 Intake Total 6592 6733 Output Total 800 Balance 6592 5933 Invanz #3 Clindamycin #2 Blood cultures GAS Operative cultures GAS Wound culture from ED MSSA, Group C/G strep, GNR Blood culture 09/17/15 pending - Physical Exam General Appearance: alert, no apparent distress EENT: pharynx normal, No scleral icterus, No conjunctival petechiae Respiratory: other (crackles bilateral bases) Neck: supple Cardiac/Chest: regular rate, rhythm, No systolic murmur Extremities: inflammation (right lower extremity wound with small area of necrosis at margin medially with fat necrosis; majority of tissue appears viable ; significant tunneling medially and superiorly; peeling skin adjacent to wound) Abdomen: non-tender, No distended Skin: other (no erythroderma) ICD10 Worksheet Patient Problems: Problems Problem Status Diagnosed Cellulitis Acute Knee contusion Acute
[2016-09-17 12:19] LABS: ANION GAP 6 mEq/L (8-16); CALCIUM 7.3 mg/dL (8.5-10.4); CARBON DIOXIDE 23 mEq/l (22-31); CHLORIDE 110 mEq/L (97-110); CREATININE 0.6 mg/dL (0.7-1.3); GLOMERULAR FILTRATION RATE > 60; GLUCOSE 86 mg/dL (70-100); POTASSIUM 4.4 mEq/L (3.5-5.2); SODIUM 139 mEq/L (134-144)
--- NOTE | 2016-09-17 12:19 | IR ---
Ultrasound-Guided Placement of Peripherally Inserted Central Catheter HISTORY: Cellulitis of the leg. TECHNIQUE: Procedure was performed at the patient's bedside, with limited imaging. The left arm was p repped and draped in sterile fashion. All elements of maximal sterile barrier technique were used, in cluding large sterile sheet, chlorhexidine scrub, sterile gowns, hats, masks, and sterile gloves. For ultrasound imaging guidance, the ultrasound probe was placed in a sterile sleeve and used to evaluat e potential access sites. After successfully identifying a patent vessel, ultrasound guidance was use d to puncture the left basilic vein with a 21-gauge needle. Permanent record was created. A 0.018 edith suring wire was followed by a 6 Jamaican peel-away sheath, allowing coaxial placement of a 5 Jamaican mary lou ble lumen central catheter, which was trimmed to 45 cm length. Length was estimated from external edith surements. Catheter irrigated easily. A StatLock sterile adhesive dressing was placed to secure the c atheter. The left jugular vein was imaged sonographically to make sure that there was no retrograde m alposition into the jugular vein. Portable chest x-ray was obtained later for confirmation of position, reported separately. IMPRESSION: Portable ultrasound-guided placement of 5 Jamaican dual-lumen peripherally inserted central catheter from the left arm; radiographic confirmation is pending. PQRS components: The patient does not smoke. All medications including [id number] medications a re listed in the patient's medical record. Prophylactic antibiotic: None. Anticoagulation: None.
--- NOTE | 2016-09-17 12:22 | DX ---
Portable Chest September 17, 2016, 1121 hours HISTORY: Cellulitis. Assess new peripherally inserted central catheter. FINDINGS: Compare 0558 hours today and yesterday. Poor inspiratory depth exaggerates pulmonary markin gs. New peripherally inserted central catheter of the left arm terminates in the upper aspect of the right atrium. IMPRESSION: New peripherally inserted central catheter is ready to use.
[2016-09-17 12:36] LABS: HYPOCHROMIA 1+; PLATELET ESTIMATE ADEQUATE (ADEQ)
--- NOTE | 2016-09-17 12:43 | SOAPPROG ---
SOAP Progress Note Assessment/Plan: Assessment/Plan: 55 Y M s/p I&D of severe RLE abscess and cellulitis. Seen and examined c Drs. Mejia and today. Muscle and skin largely viable. Improving but does need further debridement. Plan for OR debridement, possible wound vac placement, in am c Dr. Wolfe. 09/17/16 12:40 Objective: Vital Signs Temp Pulse Resp BP Pulse Ox 36.7 C 75 24 H 92/51 L 95 09/17/16 12:00 09/17/16 12:00 09/17/16 12:00 09/17/16 12:00 09/17/16 12:00 Microbiology 09/15/16 15:15 Gram Stain - Final Leg - Eswab 09/15/16 15:15 Gram Stain - Final Leg - Eswab Laboratory Results 09/17/16 11:40 09/17/16 11:40 09/16/16 09/17/16 09/18/16 05:59 05:59 05:59 Intake Total 6592 6733 Output Total 800 Balance 6592 5933 PT 15.3 SEC (12.0-15.0) H 09/17/16 11:40 INR 1.21 (0.83-1.16) H 09/17/16 11:40 ICD10 Worksheet Patient Problems: Problems Problem Status Diagnosed Cellulitis Acute Knee contusion Acute
[2016-09-17] MEDS: ceFAZolin 2 GM/DEXTROSE 100 ML IV SCH ×2 (14:16→22:14)
[2016-09-17 15:21] LABS: COLOR YELLOW; LEUKOCYTE ESTERASE,URINE NEGATIVE (NEGATIVE); NITRITE,URINE NEGATIVE (NEGATIVE)
--- NOTE | 2016-09-17 17:03 | HOSPPROG ---
Hospitalist Progress Note Assessment/Plan: * Severe sepsis - improved - BC + GAS - low blood pressure today although I suspect he runs fairly low. No other evidence of sepsis. No tachycardia and lactate is normal. He has no other symptoms. We will continue to monitor. Did not think he needs pressors. - will check cortisol * Necrotizing soft tissue infection of leg - GAS -s/p I&D necrotic material extending through fascia into muscle -will need further debridement - schedule for - Antibiotics changed per ID * ARF - resolved * Homeless/blind * Schizophrenia - untreated Subjective: no new complaints. Having pain and leg Objective: Vital Signs Temp Pulse Resp BP Pulse Ox 36.7 C 83 26 H 95/47 L 98 09/17/16 12:00 09/17/16 16:00 09/17/16 16:00 09/17/16 16:00 09/17/16 16:00 Microbiology 09/15/16 15:15 Gram Stain - Final Leg - Eswab 09/15/16 15:15 Gram Stain - Final Leg - Eswab Laboratory Results 09/17/16 11:40 09/17/16 11:40 09/16/16 09/17/16 09/18/16 05:59 05:59 05:59 Intake Total 6592 6733 Output Total 800 400 Balance 6592 5933 -400 PT 15.3 SEC (12.0-15.0) H 09/17/16 11:40 INR 1.21 (0.83-1.16) H 09/17/16 11:40 discuss with pulmonology - Physical Exam Constitutional: no apparent distress, appears nourished, not in pain Eyes: anicteric sclera, EOMI Ears, Nose, Mouth, Throat: moist mucous membranes, hearing normal, ears appear normal Cardiovascular: regular rate and rhythym, no murmur, rub, or gallop Respiratory: no respiratory distress, no rales or rhonchi Gastrointestinal: normoactive bowel sounds, soft, non-tender abdomen, no palpable masses Musculoskeletal: other ( dressed right leg 1+ edema) Neurologic: AAOx3 Psychiatric: interacting appropriately, not anxious, not encephalopathic, thought process linear ICD10 Worksheet Patient Problems: Problems Problem Status Diagnosed Cellulitis Acute Knee contusion Acute
[2016-09-17] MEDS ORDERED: CEPACOL LOZENGE PO PRN (20:07)
[2016-09-18 05:13] LABS: ADD DIFF? YES; ADD MORPH? NO; FRAGMENT RBC FLAG 0 (0-99); HEMATOCRIT 30.8 % (40.0-51.0); HEMOGLOBIN 10.1 g/dL (13.7-17.5); LEFT SHIFT FLG 70 (0-99); LIPEMIA HEMOLYSIS FLAG 80 (0-99); MEAN CELL HEMOGLOBIN 29.9 pg (27.9-34.1); MEAN CELL HEMOGLOBIN CONCENTR. 32.8 g/dL (32.4-36.7); MEAN CELL VOLUME 91.1 fL (81.5-99.8); MEAN PLATELET VOLUME 8.8 fL (8.7-11.7); PLATELET CLUMPS FLAG 10 (0-99); PLATELET COUNT 393 10^3/uL (150-400); RED BLOOD CELL COUNT 3.38 10^6/uL (4.40-6.38); RED CELL DISTRIBUTION WIDTH 13.2 % (11.5-15.2)
[2016-09-18 05:16] LABS: ADD SCAN? NO; ATYPICAL LYMPHOCYTE FLAG 110 (0-99)
[2016-09-18 05:34] LABS: ALANINE AMINOTRANSFERASE 59 IU/L (21-72); ALBUMIN 1.8 g/dL (3.5-5.0); ALKALINE PHOSPHATASE 132 IU/L (38-126); ANION GAP 5 mEq/L (8-16); ASPARTATE AMINOTRANSFERASE 99 IU/L (17-59); BILIRUBIN,TOTAL 0.3 mg/dL (0.1-1.4); CALCIUM 7.4 mg/dL (8.5-10.4); CARBON DIOXIDE 25 mEq/l (22-31); CHLORIDE 109 mEq/L (97-110); CREATININE 0.7 mg/dL (0.7-1.3); GLOMERULAR FILTRATION RATE > 60; GLUCOSE 103 mg/dL (70-100); POTASSIUM 4.8 mEq/L (3.5-5.2); SODIUM 139 mEq/L (134-144); TOTAL PROTEIN 4.9 g/dL (6.3-8.2)
[2016-09-18 06:03] LABS: CORTISOL-AM 25.4 ug/dL (4.5-22.7)
[2016-09-18 06:17] LABS: PLATELET ESTIMATE ADEQUATE (ADEQ); TOXIC GRANULATION PRESENT
[2016-09-18] MEDS: ceFAZolin 2 GM/DEXTROSE 100 ML IV SCH ×3 (06:17→21:39)
[2016-09-18] MEDS: CLINDAMYCIN 600 MG/DEXTROSE 50 ML IV SCH ×3 (06:40→22:15)
[2016-09-18] MEDS ORDERED: BUPIVACAINE 0.5% 30 ML SDV ONE (08:24)
[2016-09-18] MEDS: NS 1,000 ML IV SCH (08:24)
--- NOTE | 2016-09-18 11:09 | PDINTPN ---
Paediatric Physiotherapist Progress Note Assessment/Plan: Assessment: * Necrotizing cellulitis * Sepsis * Blindness * Schizophrenia Plan: Abx per ID To OR today for debridement Pain control Subjective: Resting comfortably Objective: Vital Signs Temp Pulse Resp BP Pulse Ox 37.3 C 102 H 24 H 125/65 H 91 L 09/18/16 08:00 09/18/16 10:00 09/18/16 10:00 09/18/16 10:00 09/18/16 10:00 Microbiology 09/15/16 15:15 Gram Stain - Final Leg - Eswab 09/15/16 15:15 Gram Stain - Final Leg - Eswab Laboratory Results 09/18/16 05:00 09/18/16 05:00 09/17/16 09/18/16 09/19/16 05:59 05:59 05:59 Intake Total 6733 6230 Output Total 800 1350 600 Balance 5933 4880 -600 PT 15.3 SEC (12.0-15.0) H 09/17/16 11:40 INR 1.21 (0.83-1.16) H 09/17/16 11:40 Physical Exam - Physical Exam General Appearance: alert, no apparent distress EENT: PERRL/EOMI, normal ENT inspection, pharynx normal, TMs normal Neck: non-tender, full range of motion, supple, normal inspection Respiratory: chest non-tender, lungs clear, normal breath sounds, prolonged expiration Cardiac/Chest: normal peripheral pulses, regular rate, rhythm, systolic murmur Peripheral Pulses: 2+: carotid (R), carotid (L), femoral (R), femoral (L), dorsalis-pedis (R), dorsalis-pedis (L) Abdomen: normal bowel sounds, non-tender, soft Male Genitalia: deferred Rectal: deferred Skin: normal color, warm/dry Neuro/Psych: alert ICD10 Worksheet Patient Problems: Problems Problem Status Diagnosed Cellulitis Acute Knee contusion Acute
[2016-09-18] MEDS ORDERED: PROPOFOL 200 MG/20 ML VIAL ONE ×2 (12:15→12:24)
[2016-09-18] MEDS ORDERED: fentaNYL 100 MCG/2 ML INJ ONE ×2 (12:15→12:45)
[2016-09-18] MEDS ORDERED: THROMBIN (RECOMBINANT) 20,000 UNIT SPRAY TP ONE (12:55)
[2016-09-18] MEDS ORDERED: LIDOCAINE 2% 5 ML SDV ONE (13:15)
[2016-09-18] MEDS ORDERED: FUROSEMIDE 20 MG/2 ML VIAL IVP ONE (15:55)
--- NOTE | 2016-09-18 15:58 | HOSPPROG ---
Hospitalist Progress Note Assessment/Plan: * Severe sepsis - improved - BC + GAS * blood pressure better today * normal a.m. cortisol * Necrotizing soft tissue infection of leg - GAS -s/p I&D necrotic material extending through fascia into muscle -will need further debridement - today - Antibiotics per ID * mild fluid overload * is a little bit tachypneic although oxygen saturations are normal. Has received 15 L of fluid the last 3 days * will give a little bit of Lasix today * ARF - resolved * Homeless/blind * Schizophrenia - untreated Subjective: no new complaints. Does feel like his hands and legs are somewhat swollen Objective: Vital Signs Temp Pulse Resp BP Pulse Ox 36.9 C 82 26 H 137/66 H 100 09/18/16 14:26 09/18/16 15:15 09/18/16 15:15 09/18/16 15:15 09/18/16 15:15 Microbiology 09/15/16 15:15 Gram Stain - Final Leg - Eswab 09/15/16 15:15 Gram Stain - Final Leg - Eswab Laboratory Results 09/18/16 05:00 09/18/16 05:00 09/17/16 09/18/16 09/19/16 05:59 05:59 05:59 Intake Total 6733 6230 500 Output Total 800 1350 930 Balance 5933 4880 -430 PT 15.3 SEC (12.0-15.0) H 09/17/16 11:40 INR 1.21 (0.83-1.16) H 09/17/16 11:40 discussed with pulmonology - Physical Exam Constitutional: no apparent distress, appears nourished, not in pain Eyes: anicteric sclera, EOMI Ears, Nose, Mouth, Throat: moist mucous membranes, hearing normal, ears appear normal Cardiovascular: regular rate and rhythym, no murmur, rub, or gallop, edema ( 2+ edema) Respiratory: no respiratory distress, no rales or rhonchi, other ( slight rales) Gastrointestinal: normoactive bowel sounds, soft, non-tender abdomen, no palpable masses Musculoskeletal: other ( dressed bilateral leg wounds) Neurologic: AAOx3 Psychiatric: interacting appropriately, not anxious, not encephalopathic, thought process linear ICD10 Worksheet Patient Problems: Problems Problem Status Diagnosed Cellulitis Acute Knee contusion Acute
--- NOTE | 2016-09-18 17:16 | PCMIDPN ---
Assessment/Plan: Assessment: Right lower extremity cellulitis-severe. Abscess detected and drained 3 days ago. Patient return to the operating room for more debridement today. He also had a small abscess on the anterior choudhary of his left lower extremity. Cultures of the right lower extremity fluid reveal group a strep as well as methicillin sensitive Staph aureus. Patient is covered well with cefazolin as well as clindamycin and Levaquin. Blood culture showing only group a strep. Deep wound culture showing both group a strep and methicillin sensitive Staph aureus. Will discontinue the Levaquin at this point. Will follow his clinical course. Plan: 1. Continue intravenous cefazolin and clindamycin. 2. Discontinue Levaquin. 3. Follow his clinical course improvement as well as the culture results from today's procedures. Subjective: Patient is resting comfortably in his hospital bed. He is postoperative form more incision and drainage work on his lower extremities. No fevers or chills. Objective: Cefazolin #3 Clindamycin # 2. Levaquin # 2. Vital Signs Temp Pulse Resp BP Pulse Ox 36.9 C 81 27 H 128/64 H 99 09/18/16 16:00 09/18/16 16:00 09/18/16 16:00 09/18/16 16:00 09/18/16 16:00 Microbiology 09/15/16 15:15 Gram Stain - Final Leg - Eswab 09/15/16 15:15 Gram Stain - Final Leg - Eswab Laboratory Results 09/18/16 05:00 09/18/16 05:00 09/17/16 09/18/16 09/19/16 05:59 05:59 05:59 Intake Total 6733 6230 500 Output Total 800 1350 1230 Balance 5933 4880 -340 - Physical Exam General Appearance: WD/WN, alert, no apparent distress, non-toxic Cardiac/Chest: regular rate, rhythm, No bradycardia, No tachycardia Extremities: No non-tender, No normal inspection Skin: normal color, warm/dry, No rash Neuro/Psych: alert, normal mood/affect, oriented x 3 ICD10 Worksheet Patient Problems: Problems Problem Status Diagnosed Cellulitis Acute Knee contusion Acute
[2016-09-18] MEDS: oxyCODONE IR 5 MG TAB PO PRN (17:45)
--- NOTE | 2016-09-18 18:32 | POSTOPPROG ---
Post Op Note Date of Operation: 09/18/16 Surgeon: Georges Wolfe Reactor Kettle Operator: RONEY Mccurdy Anesthesiologist: Pratima Anesthesia: GET(General Endotracheal) Pre-op Diagnosis: RLE abscess Post-op Diagnosis: same Procedure: I&D of BLE Findings: additional skin and fascia removed superiorly. Inf/Abcess present in the surg proc area at time of surgery?: Yes Depth: Deep Incisional (Fascial) EBL: Minimal Drains: Wound Vac
[2016-09-19] MEDS: oxyCODONE IR 5 MG TAB PO PRN (05:01)
[2016-09-19] MEDS: ceFAZolin 2 GM/DEXTROSE 100 ML IV SCH ×3 (05:01→21:39)
[2016-09-19 05:33] LABS: ADD DIFF? YES; ADD MORPH? NO; ADD SCAN? NO; ATYPICAL LYMPHOCYTE FLAG 60 (0-99); FRAGMENT RBC FLAG 0 (0-99); HEMATOCRIT 27.3 % (40.0-51.0); LEFT SHIFT FLG 40 (0-99); LIPEMIA HEMOLYSIS FLAG 80 (0-99); MEAN CELL VOLUME 88.1 fL (81.5-99.8); MEAN PLATELET VOLUME 8.7 fL (8.7-11.7); PLATELET CLUMPS FLAG 10 (0-99); PLATELET COUNT 328 10^3/uL (150-400); RED CELL DISTRIBUTION WIDTH 13.2 % (11.5-15.2)
[2016-09-19 05:52] LABS: ALANINE AMINOTRANSFERASE 54 IU/L (21-72); ALBUMIN 1.7 g/dL (3.5-5.0); ALKALINE PHOSPHATASE 91 IU/L (38-126); ANION GAP 2 mEq/L (8-16); ASPARTATE AMINOTRANSFERASE 87 IU/L (17-59); BILIRUBIN,TOTAL 0.3 mg/dL (0.1-1.4); CALCIUM 7.3 mg/dL (8.5-10.4); CARBON DIOXIDE 30 mEq/l (22-31); CHLORIDE 103 mEq/L (97-110); CREATININE 0.7 mg/dL (0.7-1.3); GLOMERULAR FILTRATION RATE > 60; GLUCOSE 95 mg/dL (70-100); SODIUM 135 mEq/L (134-144); TOTAL PROTEIN 4.8 g/dL (6.3-8.2)
[2016-09-19 06:15] LABS: PLATELET ESTIMATE ADEQUATE (ADEQ)
[2016-09-19 06:16] LABS: HYPOCHROMIA 1+
[2016-09-19] MEDS: CLINDAMYCIN 600 MG/DEXTROSE 50 ML IV SCH (06:28)
[2016-09-19] MEDS ORDERED: PNEUMOCOCCAL 0.5ML VACCINE VIAL IM ONE (09:21)
--- NOTE | 2016-09-19 09:38 | PDINTPN ---
Medical Office Rep Progress Note Assessment/Plan: Assessment: * Necrotizing cellulitis-improved. S/p debridement. WBC down * Sepsis-resolved * Blindness * Schizophrenia Plan: Abx per ID Pain control Overall much improved Subjective: Awake and alert. Comfortable. Objective: Vital Signs Temp Pulse Resp BP Pulse Ox 37.8 C 116 H 22 H 117/71 95 09/19/16 08:00 09/19/16 08:00 09/19/16 08:00 09/19/16 08:00 09/19/16 08:00 Microbiology 09/15/16 15:15 Gram Stain - Final Leg - Eswab 09/15/16 15:15 Gram Stain - Final Leg - Eswab Laboratory Results 09/19/16 05:00 09/19/16 05:00 09/18/16 09/19/16 09/20/16 05:59 05:59 05:59 Intake Total 6230 2384 Output Total 1350 2640 Balance 4880 -256 PT 15.3 SEC (12.0-15.0) H 09/17/16 11:40 INR 1.21 (0.83-1.16) H 09/17/16 11:40 Physical Exam - Physical Exam General Appearance: alert, no apparent distress EENT: PERRL/EOMI, normal ENT inspection, pharynx normal Neck: non-tender, full range of motion, supple, normal inspection Respiratory: decreased breath sounds, No respiratory distress, No stridor, No wheezing Cardiac/Chest: normal peripheral pulses, regular rate, rhythm Peripheral Pulses: 2+: carotid (R), carotid (L), femoral (R), femoral (L), dorsalis-pedis (R), dorsalis-pedis (L) Abdomen: normal bowel sounds, non-tender, soft Male Genitalia: deferred Rectal: deferred Skin: normal color, warm/dry ICD10 Worksheet Patient Problems: Problems Problem Status Diagnosed Cellulitis Acute Knee contusion Acute
[2016-09-19] MEDS ORDERED: ALTEPLASE 2 MG VIAL IVP PRN (11:58)
--- NOTE | 2016-09-19 12:35 | PCMIDPN ---
Assessment/Plan: Assessment/Plan: * Right lower extremity necrotizing fasciitis/abscess due to GAS (Group A strep ) and MSSA with concomitant GAS bacteremia: Repeat debridement performed yesterday without evidence of active necrosis. Wound VAC placed given size of wound. Repeat blood culture show clearing of bacteremia and blood pressure has normalized. Continue cefazolin. Will discontinue clindamycin as maximum adjunctive benefit likely achieved. Will not specifically target Pseudomonas isolated from initial culture as this was superficial wound rather than operative specimen. 09/19/16 12:28 09/19/16 12:30 Subjective: Patient had gotten up to restroom on his own and inadvertently pulled out PICC line. Repeat debridement yesterday with placement of wound VAC. Operative findings reviewed with Dr. Wolfe. Objective: Vital Signs Temp Pulse Resp BP Pulse Ox 37.8 C 96 12 134/62 H 98 09/19/16 08:00 09/19/16 10:00 09/19/16 10:00 09/19/16 10:00 09/19/16 10:00 Microbiology 09/15/16 15:15 Gram Stain - Final Leg - Eswab 09/15/16 15:15 Gram Stain - Final Leg - Eswab Laboratory Results 09/19/16 05:00 09/19/16 05:00 09/18/16 09/19/16 09/20/16 05:59 05:59 05:59 Intake Total 6230 2384 700 Output Total 1350 2640 100 Balance 4880 -256 600 Cefazolin # 3 Clindamycin #4 Blood cultures 09/17/2016 no growth - Physical Exam General Appearance: alert, no apparent distress EENT: pharynx normal Extremities: inflammation (Right lower extremity with wound VAC in place; no surrounding cellulitis; edema remains present; left lower extremity abscess cavity clean without signs of infection) Abdomen: non-tender, No distended ICD10 Worksheet Patient Problems: Problems Problem Status Diagnosed Cellulitis Acute Knee contusion Acute
--- NOTE | 2016-09-19 14:37 | IR ---
Imaging Guided Peripherally Inserted Central Catheter History: Necrotizing fasciitis. Accidentally pulled out previous central catheter. Technique: Following informed consent, the right arm was prepped and draped in sterile fashion. All e lements of maximal sterile barrier technique including cap, mask, sterile gown, sterile gloves, large sterile sheet, hand hygiene, and 2% chlorhexidine for cutaneous antisepsis, followed. Ultrasound tra nsducer was placed in sterile sleeve and sterile coupling gel was used. Ultrasound evaluation of pote ntial access sites was performed. After successfully identifying a patent vessel of adequate size, 1% Xylocaine was used for local anesthetic. Ultrasound guidance was used to puncture the basilic vein with a 21-gauge needle. 0.018 measuring wire was passed centrally under fluoroscopic control. A skin clark with scalpel blade was followed by removing the access needle. A 4.5 [place] peel-away sheath was followed by a 4 [place] single-lumen central catheter, trimmed to 40 cm length. The tip of the cathet er was positioned centrally and the guidewire removed. AP fluoroscopic spot image was obtained in ins piration. The catheter irrigated easily. The hub of the catheter was secured to the skin using 2 sutu res of 3-0 nylon, and a sterile dressing was applied. Fluoroscopy time in minutes: 0.2 . Estimated exposure in mGy: 7.5 . Findings: The tip of the central catheter terminates at the junction of the superior vena cava and th e right atrium. Impression: 4 [place] single-lumen central catheter peripherally inserted central catheter is ready to use. - - - - - - - - - - - - - - - - - - - - - - - - - - - - - - - - - - - - - - - - - (Cross-cutting measures: Current medications were listed in the medical record, including all known prescriptions, [id number] medications, herbal medications, and nutritional supplements. The pat ient does not smoke. )
--- NOTE | 2016-09-19 14:45 | GOP ---
[f rep st] OPERATIVE REPORT DATE OF OPERATION: 09/18/2016 SURGEON: Georges Wolfe MD COLLAR BASTER JUMPBASTING: Minor Mccurdy PA-C ANESTHESIA: General endotracheal. ANESTHESIOLOGIST: Alonzo Andujar MD PREOPERATIVE DIAGNOSIS: Right lower extremity necrotizing fasciitis. POSTOPERATIVE DIAGNOSIS: Right lower extremity necrotizing fasciitis. PROCEDURE PERFORMED: 1. Incision and drainage with wound VAC placement to the right lower extremity. 2. Left lower extremity debridement. FINDINGS: As stated previously, the right lower extremity abscess did track superiorly. Took the re mainder of the skin bridge down and did debride some necrotic fascia to this. Once debrided, I succe ssfully obtained hemostasis and placed a wound VAC. The left lower extremity had an approximately 1 sq cm area that I cleaned up and packed successfully with iodoform gauze. SPECIMENS: None. ESTIMATED BLOOD LOSS: 50 cc. DESCRIPTION OF PROCEDURE: The patient was greeted in the preoperative suite. Once again, risks, mary grace efits, and alternatives were discussed. He was then brought back to the operative suite. A [place] time-out was performed. His right lower extremity was then prepped and draped in t ypical sterile fashion. I turned my attention first toward that right leg. He had minimal remaining necrosis in the inferomedial portion of that leg which I successfully debrided. I did turn my atten tion superiorly, where he had a significant undermining of skin. Given the fact that he did have ibeth e purulent tissue deep to this, I took the remainder of that skin down. I debrided the necrotic fasc ia and some muscle deep to this. Hemostasis was achieved with spray thrombin and direct pressure, al debra with electrocautery. After I felt that I had the majority (if not all) of the necrotic tissue re moved, a wound VAC was brought onto the field and fashioned appropriately to the wound size. It was then covered with sterile drapes and attached to suction at 125 mmHg, which was well tolerated by the patient. I then turned my attention toward his left lower extremity. Again, he had a 1 sq cm area which was punctate and had some purulent fluid. I debrided it, washed it out, and successfully place d iodoform gauze within it. The patient was then extubated and taken to the PACU in satisfactory con dition. DRAINS: Wound VAC. COUNTS: All counts were reported as correct x2. /[id number]/MODL
--- NOTE | 2016-09-19 16:20 | HOSPPROG ---
Hospitalist Progress Note Assessment/Plan: * Severe sepsis - improved - BC + GAS * blood pressure better today * normal a.m. cortisol * Necrotizing soft tissue infection of leg - GAS -s/p I&D necrotic material extending through fascia into muscle - status post debridement yesterday. Wound VAC on - Antibiotics per ID * mild fluid overload * seems to be better today * ARF - resolved * Homeless/blind * Schizophrenia - untreated Subjective: no new complaints Objective: Vital Signs Temp Pulse Resp BP Pulse Ox 37.7 C 88 26 H 121/70 H 99 09/19/16 12:00 09/19/16 14:15 09/19/16 14:15 09/19/16 14:15 09/19/16 14:15 Microbiology 09/15/16 15:15 Gram Stain - Final Leg - Eswab 09/15/16 15:15 Gram Stain - Final Leg - Eswab Laboratory Results 09/19/16 05:00 09/19/16 05:00 09/18/16 09/19/16 09/20/16 05:59 05:59 05:59 Intake Total 6230 2384 700 Output Total 1350 2640 500 Balance 4880 -256 200 PT 15.3 SEC (12.0-15.0) H 09/17/16 11:40 INR 1.21 (0.83-1.16) H 09/17/16 11:40 - Physical Exam Constitutional: no apparent distress, appears nourished, not in pain Eyes: anicteric sclera, EOMI Ears, Nose, Mouth, Throat: moist mucous membranes, hearing normal, ears appear normal Cardiovascular: regular rate and rhythym, no murmur, rub, or gallop Respiratory: no respiratory distress Gastrointestinal: normoactive bowel sounds, soft, non-tender abdomen, no palpable masses Skin: warm Neurologic: AAOx3 Psychiatric: interacting appropriately, not anxious, not encephalopathic, thought process linear ICD10 Worksheet Patient Problems: Problems Problem Status Diagnosed Cellulitis Acute Knee contusion Acute
--- NOTE | 2016-09-19 16:37 | SOAPPROG ---
SOAP Progress Note Assessment/Plan: Assessment/Plan - 55yo M s/p RLE debridement now c VAC - Debrided additional superiorly yesterday, muscle looked great for the most part - VAC had about 200cc serosang drainage overnight, holding suction appropriately. - pain controlled, discussed with wound care but will likely coordinate next VAC change at bedside Thursday. - If infection clears, looking for skin graft in next week or so. 09/16/16 10:44 09/19/16 16:35 Subjective: Doing well, pain controlled. No new complaints Objective: Vital Signs Temp Pulse Resp BP Pulse Ox 37.7 C 88 26 H 121/70 H 99 09/19/16 12:00 09/19/16 14:15 09/19/16 14:15 09/19/16 14:15 09/19/16 14:15 Microbiology 09/15/16 15:15 Gram Stain - Final Leg - Eswab 09/15/16 15:15 Gram Stain - Final Leg - Eswab Laboratory Results 09/19/16 05:00 09/19/16 05:00 09/18/16 09/19/16 09/20/16 05:59 05:59 05:59 Intake Total 6230 2384 700 Output Total 1350 2640 500 Balance 4880 -256 200 PT 15.3 SEC (12.0-15.0) H 09/17/16 11:40 INR 1.21 (0.83-1.16) H 09/17/16 11:40 ICD10 Worksheet Patient Problems: Problems Problem Status Diagnosed Cellulitis Acute Knee contusion Acute
[2016-09-20] MEDS: ceFAZolin 2 GM/DEXTROSE 100 ML IV SCH ×3 (05:35→21:48)
--- NOTE | 2016-09-20 08:40 | SOAPPROG ---
SOAP Progress Note Assessment/Plan: Assessment/Plan - 55yo M s/p RLE debridement now c VAC - leg looks good, VAC holding suction. Planning VAC change thursday at bedside. No need to make NPO. May need addl debridement but will make decision for that Thursday09/16/16 10:44 09/19/16 16:35 09/20/16 08:38 Subjective: Feels good. Objective: Vital Signs Temp Pulse Resp BP Pulse Ox 36.9 C 99 30 H 114/55 L 93 09/19/16 20:00 09/19/16 20:00 09/19/16 20:00 09/19/16 20:00 09/19/16 20:00 Microbiology 09/15/16 15:15 Gram Stain - Final Leg - Eswab 09/15/16 15:15 Gram Stain - Final Leg - Eswab Laboratory Results 09/19/16 05:00 09/19/16 05:00 09/19/16 09/20/16 09/21/16 05:59 05:59 05:59 Intake Total 2384 1433 Output Total 2250 2355 275 Balance -256 -922 -275 PT 15.3 SEC (12.0-15.0) H 09/17/16 11:40 INR 1.21 (0.83-1.16) H 09/17/16 11:40 ICD10 Worksheet Patient Problems: Problems Problem Status Diagnosed Cellulitis Acute Knee contusion Acute
[2016-09-20] MEDS: ENOXAPARIN 40 MG/0.4 ML SYR SC SCH (09:40)
--- NOTE | 2016-09-20 13:27 | HOSPPROG ---
Hospitalist Progress Note Assessment/Plan: * Necrotizing soft tissue infection of leg - GAS -s/p I&D necrotic material extending through fascia into muscle - status post debridement. Wound VAC on - IV Ancef * Severe sepsis - improved - BC + GAS * blood pressure better today * normal a.m. cortisol * ARF - resolved * Homeless/blind * Schizophrenia - untreated Subjective: no new complaints Objective: Vital Signs Temp Pulse Resp BP Pulse Ox 36.7 C 99 20 118/60 92 09/20/16 08:00 09/20/16 08:00 09/20/16 08:00 09/20/16 08:00 09/20/16 09:48 Microbiology 09/15/16 15:15 Gram Stain - Final Leg - Eswab 09/15/16 15:15 Gram Stain - Final Leg - Eswab Laboratory Results 09/19/16 05:00 09/19/16 05:00 09/19/16 09/20/16 09/21/16 05:59 05:59 05:59 Intake Total 2384 1433 Output Total 2640 2355 275 Balance -256 -922 -275 PT 15.3 SEC (12.0-15.0) H 09/17/16 11:40 INR 1.21 (0.83-1.16) H 09/17/16 11:40 - Physical Exam Constitutional: no apparent distress, appears nourished, not in pain Eyes: anicteric sclera, EOMI Ears, Nose, Mouth, Throat: moist mucous membranes, hearing normal Cardiovascular: regular rate and rhythym, no murmur, rub, or gallop Respiratory: no respiratory distress, no rales or rhonchi, clear to auscultation Gastrointestinal: normoactive bowel sounds, soft, non-tender abdomen, no palpable masses Skin: warm Neurologic: AAOx3 Psychiatric: interacting appropriately, not anxious, not encephalopathic, thought process linear ICD10 Worksheet Patient Problems: Problems Problem Status Diagnosed Cellulitis Acute Knee contusion Acute
--- NOTE | 2016-09-20 17:43 | PCMIDPN ---
Assessment/Plan: Assessment/Plan: * Right lower extremity necrotizing fasciitis/abscess due to GAS (Group A strep ) and MSSA with concomitant GAS bacteremia: Continued clinical improvement. Wound VAC remains in place with plans for wound VAC change on Thursday. No surrounding cellulitis at margins present. Continue cefazolin. Repeat blood cultures demonstrate clearing of bacteremia. 09/20/16 17:41 Subjective: Patient with some right lower extremity pain. No diarrhea. Objective: Vital Signs Temp Pulse Resp BP Pulse Ox 37.6 C 84 15 121/76 H 90 L 09/20/16 15:54 09/20/16 15:54 09/20/16 15:54 09/20/16 15:54 09/20/16 15:54 Microbiology 09/15/16 15:15 Gram Stain - Final Leg - Eswab 09/15/16 15:15 Gram Stain - Final Leg - Eswab Laboratory Results 09/19/16 05:00 09/19/16 05:00 09/19/16 09/20/16 09/21/16 05:59 05:59 05:59 Intake Total 2384 1433 Output Total 2642 6633 275 [facility] -256 -922 -275 Cefazolin # 4 Blood cultures 09/17/2016 no growth - Physical Exam General Appearance: alert, no apparent distress EENT: pharynx normal Respiratory: lungs clear, No respiratory distress Cardiac/Chest: regular rate, rhythm Extremities: inflammation (Right lower extremity with wound VAC in place; surrounding soft tissue soft without cellulitis or tenderness; small abscess left anterior choudhary packed without surrounding erythema) Abdomen: non-tender, No distended ICD10 Worksheet Patient Problems: Problems Problem Status Diagnosed Cellulitis Acute Knee contusion Acute
[2016-09-20] MEDS: oxyCODONE IR 5 MG TAB PO PRN (21:49)
[2016-09-21] MEDS: oxyCODONE IR 5 MG TAB PO PRN ×2 (02:49→20:03)
[2016-09-21] MEDS: ceFAZolin 2 GM/DEXTROSE 100 ML IV SCH ×3 (04:45→22:00)
[2016-09-21 05:06] LABS: ADD DIFF? YES; ADD MORPH? NO; ADD SCAN? NO; ATYPICAL LYMPHOCYTE FLAG 20 (0-99); FRAGMENT RBC FLAG 0 (0-99); HEMATOCRIT 27.1 % (40.0-51.0); LEFT SHIFT FLG 30 (0-99); LIPEMIA HEMOLYSIS FLAG 80 (0-99); MEAN CELL HEMOGLOBIN 29.6 pg (27.9-34.1); MEAN CELL HEMOGLOBIN CONCENTR. 33.2 g/dL (32.4-36.7); MEAN CELL VOLUME 89.1 fL (81.5-99.8); MEAN PLATELET VOLUME 8.4 fL (8.7-11.7); PLATELET CLUMPS FLAG 0 (0-99); PLATELET COUNT 301 10^3/uL (150-400); RED BLOOD CELL COUNT 3.04 10^6/uL (4.40-6.38); RED CELL DISTRIBUTION WIDTH 13.1 % (11.5-15.2)
[2016-09-21 05:32] LABS: PLATELET ESTIMATE ADEQUATE (ADEQ); TOXIC GRANULATION PRESENT
[2016-09-21 05:52] LABS: ANION GAP 2 mEq/L (8-16); CALCIUM 7.3 mg/dL (8.5-10.4); CARBON DIOXIDE 32 mEq/l (22-31); CHLORIDE 100 mEq/L (97-110); CREATININE 0.6 mg/dL (0.7-1.3); GLOMERULAR FILTRATION RATE > 60; GLUCOSE 86 mg/dL (70-100); POTASSIUM 3.9 mEq/L (3.5-5.2); SODIUM 134 mEq/L (134-144)
--- NOTE | 2016-09-21 12:24 | WOCRNPDOC ---
WOCRN Advanced Assessment Note - Skin Integrity Problem, Advanced Assess Right Lower Leg Dressing Type: Black Vac Foam (1 piece), Wound Vac Dressing Description: Not Intact (film drape had been removed by JODEE Burleson, in preparation for dressing change) Exudate Amount: Minimal Exudate Color: Red Exudate Characteristic(s): Clear, Serosanguinous Integumentary Issue Intervention: Dressing Changed (Placed 5 pieces of white foam into tunnels and undermined sites; 2 pieces (1 small, 1 large) of black foam into main area (used one large-size black foam, cut into 2 pieces).), Dressing Removed (Required premedication and slow, careful moistening of foam to help patient come with pain associated with removal.) Prerna Wound Tissue: Intact Prerna Wound Swelling: None Wound Bed Color: Red Wound Bed Constitution: Granulation Tissue Wound Edges: Not Attached (undermining/pocket 2.2 cm deep from 12-3 o'clock; tunnels @ 2:30 and 3:00 = 4.8 cm deep), Well Defined Site Odor: None Site Measurement - Head-to-Toe Length X Width X Depth (cm): 26 x 15 x 2 Skin Integrity Problem Comment: Gillian, RNs report that VAC had been alarming throughout noc shift, and following numerous attempts to troubleshoot, had received order/request from Dr. Sharma for [facility] to place new dressing. Following premedication and careful removal of black foam, wound was measured, base was irrigated w/ sterile NS; skin prep and protective drape applied to periwound; white foam was placed into undermined and tunneling sites; black foam to open base. Drape was placed non-circumferentially, and a drape-free opening was cut into trac-pad location to prevent drape material from affecting trac sensors. Tx was resumed at standard setting of 125mmHg continuous negative pressure, at medium intensity setting, which patient tolerated reasonably well upon initiation, then reported was more comfortable. Gillian assisted in procedure. RNs to request MD review and update of VAC setting orders. Left Lower Leg Dressing Type: Iodoform Packing (removed by JODEE Burleson) Dressing Description: Not Intact Exudate Amount: Scant Exudate Color: Yellow Exudate Characteristic(s): Serous Integumentary Issue Intervention: Dressing Changed (Filled wound with 1/4" algidex tape; covered with large bandaid.), Dressing Initialed & Dated Prerna Wound Tissue: Erythema, Indurated Prerna Wound Swelling: Mild Wound Bed Color: Red Wound Bed Constitution: Undermining (1 cm circumferentially undermined) Wound Edges: Well Defined Site Odor: None Site Measurement - Head-to-Toe Length X Width X Depth (cm): 1 cm gulshan x 1 cm deep Skin Integrity Problem Comment: Unknown etiology: Patient hypothesizes may have been spider-bite. Irrigated w/sterile NS; Filled w/algidex tape and covered w/ large bandaid. Report to JODEE Burleson.
--- NOTE | 2016-09-21 13:28 | SOAPPROG ---
SOAP Progress Note Assessment/Plan: Assessment: PT LARGE RT LEG WOUND TREATED WITH WOUND VAC/ AFEBRILE/ VAC FUNCTIONING WELL Plan: CONTINUE VAC 09/21/16 13:27 Objective: Vital Signs Temp Pulse Resp BP Pulse Ox 37.0 C 90 18 108/60 93 09/21/16 11:54 09/21/16 11:54 09/21/16 11:54 09/21/16 11:54 09/21/16 11:54 Microbiology 09/15/16 15:15 Gram Stain - Final Leg - Eswab 09/15/16 15:15 Gram Stain - Final Leg - Eswab Laboratory Results 09/21/16 04:35 09/21/16 04:35 09/20/16 09/21/16 09/22/16 05:59 05:59 05:59 Intake Total 1433 950 Output Total 0197 1375 Balance -922 -425 PT 15.3 SEC (12.0-15.0) H 09/17/16 11:40 INR 1.21 (0.83-1.16) H 09/17/16 11:40 ICD10 Worksheet Patient Problems: Problems Problem Status Diagnosed Cellulitis Acute Knee contusion Acute
--- NOTE | 2016-09-21 16:17 | HOSPPROG ---
Hospitalist Progress Note Assessment/Plan: * Necrotizing soft tissue infection of leg - GAS -s/p I&D necrotic material extending through fascia into muscle - status post debridement. Wound VAC on - IV Ancef * Severe sepsis - improved - BC + GAS * resolved * normal a.m. cortisol * ARF - resolved * Homeless/blind * Schizophrenia - untreated Subjective: no new complaints Objective: Vital Signs Temp Pulse Resp BP Pulse Ox 37.0 C 90 18 108/60 93 09/21/16 11:54 09/21/16 11:54 09/21/16 11:54 09/21/16 11:54 09/21/16 11:54 Microbiology 09/15/16 15:15 Gram Stain - Final Leg - Eswab 09/15/16 15:15 Gram Stain - Final Leg - Eswab Laboratory Results 09/21/16 04:35 09/21/16 04:35 09/20/16 09/21/16 09/22/16 05:59 05:59 05:59 Intake Total 1433 950 Output Total 2355 1375 Balance -922 -425 PT 15.3 SEC (12.0-15.0) H 09/17/16 11:40 INR 1.21 (0.83-1.16) H 09/17/16 11:40 - Physical Exam Constitutional: no apparent distress, appears nourished, not in pain Eyes: anicteric sclera, EOMI Ears, Nose, Mouth, Throat: moist mucous membranes, hearing normal, ears appear normal Cardiovascular: regular rate and rhythym Respiratory: no respiratory distress Skin: warm Musculoskeletal: other ( left wound VAC in place) Neurologic: AAOx3 Psychiatric: interacting appropriately, not anxious, not encephalopathic, thought process linear ICD10 Worksheet Patient Problems: Problems Problem Status Diagnosed Cellulitis Acute Knee contusion Acute
[2016-09-21] MEDS: ENOXAPARIN 40 MG/0.4 ML SYR SC SCH (16:34)
[2016-09-22] MEDS: oxyCODONE IR 5 MG TAB PO PRN (01:53)
[2016-09-22] MEDS: ceFAZolin 2 GM/DEXTROSE 100 ML IV SCH ×3 (05:37→22:32)
[2016-09-22] MEDS: ENOXAPARIN 40 MG/0.4 ML SYR SC SCH (09:07)
--- NOTE | 2016-09-22 10:34 | SOAPPROG ---
SOAP Progress Note Assessment/Plan: Assessment/Plan - 55yo M s/p RLE debridement now c VAC - Had some VAC issues yesterday and it was changed at bedside, tolerated ok. I saw a picture which looks great, per report there wasnt any frankly necrotic tissue remaining. - Will plan to reassess Weds. Will ultimately need skin graft but want to ensure that infection definitively controlled before I place fresh grafts. Hopefully later this week versus early next week for STSG. Cont VAC until then. WBAT 09/16/16 10:44 09/19/16 16:35 09/20/16 08:38 09/22/16 10:33 Subjective: Feels well, anxious for next steps. Objective: Vital Signs Temp Pulse Resp BP Pulse Ox 37.1 C 88 15 114/59 L 93 09/22/16 07:05 09/22/16 07:05 09/22/16 07:05 09/22/16 07:05 09/22/16 07:05 Microbiology 09/17/16 04:55 Blood Culture - Final Blood 09/17/16 04:43 Blood Culture - Final Blood 09/15/16 15:15 Gram Stain - Final Leg - Eswab 09/15/16 15:15 Gram Stain - Final Leg - Eswab Laboratory Results 09/21/16 04:35 09/21/16 04:35 09/21/16 09/22/16 09/23/16 05:59 05:59 05:59 Intake Total 950 200 300 Output Total 1375 1100 825 Balance -425 900 -525 PT 15.3 SEC (12.0-15.0) H 09/17/16 11:40 INR 1.21 (0.83-1.16) H 09/17/16 11:40 ICD10 Worksheet Patient Problems: Problems Problem Status Diagnosed Cellulitis Acute Knee contusion Acute
--- NOTE | 2016-09-22 14:41 | HOSPPROG ---
Hospitalist Progress Note Assessment/Plan: * Necrotizing soft tissue infection of leg - GAS -s/p I&D necrotic material extending through fascia into muscle - status post debridement. Wound VAC on - IV Ancef * will need skin graft later this week or next * Severe sepsis - improved - BC + GAS * resolved * normal a.m. cortisol * ARF - resolved * Homeless/blind * Schizophrenia - untreated Subjective: no new complaints Objective: Vital Signs Temp Pulse Resp BP Pulse Ox 36.8 C 83 15 118/68 95 09/22/16 11:31 09/22/16 11:31 09/22/16 11:31 09/22/16 11:31 09/22/16 11:31 Microbiology 09/15/16 15:15 Gram Stain - Final Leg - Eswab Anaerobic Culture - Final Streptococcus Pyogenes Grp A Staphylococcus Aureus 09/15/16 15:15 Gram Stain - Final Leg - Eswab Anaerobic Culture - Final Streptococcus Pyogenes Grp A Staphylococcus Aureus 09/17/16 04:55 Blood Culture - Final Blood 09/17/16 04:43 Blood Culture - Final Blood Laboratory Results 09/21/16 04:35 09/21/16 04:35 09/21/16 09/22/16 09/23/16 05:59 05:59 05:59 Intake Total 950 200 800 Output Total 1375 1100 1250 Balance -425 -900 -450 PT 15.3 SEC (12.0-15.0) H 09/17/16 11:40 INR 1.21 (0.83-1.16) H 09/17/16 11:40 - Physical Exam Constitutional: no apparent distress, appears nourished, not in pain Eyes: anicteric sclera, EOMI Ears, Nose, Mouth, Throat: moist mucous membranes, hearing normal, ears appear normal Cardiovascular: regular rate and rhythym Respiratory: no respiratory distress Gastrointestinal: normoactive bowel sounds, soft, non-tender abdomen, no palpable masses Skin: warm Neurologic: AAOx3 Psychiatric: interacting appropriately, not anxious, not encephalopathic, thought process linear ICD10 Worksheet Patient Problems: Problems Problem Status Diagnosed Cellulitis Acute Knee contusion Acute
--- NOTE | 2016-09-22 17:12 | PCMIDPN ---
Assessment/Plan: Assessment: Right lower extremity cellulitis-severe. Abscess discovered and drained. More debridement required later due to necrosis. Early necrotizing fasciitis. Group a strep and Staph aureus found in culture. Patient now has anterior right lower extremity wound VAC covering the open skin defect. This will likely need to be covered with skin grafting later on his course. Plan: 1. Continue intravenous cefazolin. 2. Follow his clinical course improvement as well as the culture results from today's procedures. Subjective: Patient resting comfortably in his hospital bed. He has no complaints. No fevers or chills. Objective: Cefazolin #6 Vital Signs Temp Pulse Resp BP Pulse Ox 37.2 C 100 14 90/53 L 93 09/22/16 16:00 09/22/16 16:00 09/22/16 16:00 09/22/16 16:00 09/22/16 16:00 Microbiology 09/15/16 15:15 Gram Stain - Final Leg - Eswab Anaerobic Culture - Final Streptococcus Pyogenes Grp A Staphylococcus Aureus 09/15/16 15:15 Gram Stain - Final Leg - Eswab Anaerobic Culture - Final Streptococcus Pyogenes Grp A Staphylococcus Aureus 09/17/16 04:55 Blood Culture - Final Blood 09/17/16 04:43 Blood Culture - Final Blood Laboratory Results 09/21/16 04:35 09/21/16 04:35 09/21/16 09/22/16 09/23/16 05:59 05:59 05:59 Intake Total 950 200 800 Output Total 1375 1100 1250 Balance -425 -900 -450 - Physical Exam General Appearance: WD/WN, alert, no apparent distress, non-toxic Respiratory: lungs clear, normal breath sounds, No respiratory distress Cardiac/Chest: regular rate, rhythm, No tachycardia Extremities: non-tender, No normal inspection (Right lower extremity wound VAC dressing intact no surrounding erythema.) Skin: normal color, warm/dry, No rash Neuro/Psych: alert, normal mood/affect ICD10 Worksheet Patient Problems: Problems Problem Status Diagnosed Cellulitis Acute Knee contusion Acute
[2016-09-23] MEDS: ceFAZolin 2 GM/DEXTROSE 100 ML IV SCH ×3 (05:23→22:03)
[2016-09-23] MEDS: ENOXAPARIN 40 MG/0.4 ML SYR SC SCH (09:46)
--- NOTE | 2016-09-23 10:56 | SOAPPROG ---
SOAP Progress Note Assessment/Plan: Assessment/Plan - 55yo M s/p RLE debridement now c VAC - VAC holding suction appropriately, remainder of RLE looks good - Will take VAC down tomorrow, assess wound. But has looked good. Given improvement will plan tentatively for STSG possibly next week 09/16/16 10:44 09/19/16 16:35 09/20/16 08:38 09/22/16 10:33 09/23/16 10:55 Subjective: no new complaints Objective: Vital Signs Temp Pulse Resp BP Pulse Ox 36.8 C 83 16 108/62 93 09/23/16 08:00 09/23/16 08:00 09/23/16 08:00 09/23/16 08:00 09/23/16 08:00 Microbiology 09/15/16 15:15 Gram Stain - Final Leg - Eswab Anaerobic Culture - Final Streptococcus Pyogenes Grp A Staphylococcus Aureus 09/15/16 15:15 Gram Stain - Final Leg - Eswab Anaerobic Culture - Final Streptococcus Pyogenes Grp A Staphylococcus Aureus 09/17/16 04:55 Blood Culture - Final Blood 09/17/16 04:43 Blood Culture - Final Blood Laboratory Results 09/21/16 04:35 09/21/16 04:35 09/22/16 09/23/16 09/24/16 05:59 05:59 05:59 Intake Total 200 800 Output Total 1100 2750 300 Balance -900 -1950 -300 PT 15.3 SEC (12.0-15.0) H 09/17/16 11:40 INR 1.21 (0.83-1.16) H 09/17/16 11:40 ICD10 Worksheet Patient Problems: Problems Problem Status Diagnosed Cellulitis Acute Knee contusion Acute
--- NOTE | 2016-09-23 12:03 | PCMIDPN ---
Assessment/Plan: Assessment/ Plan: 1. Group A sepsis/bacteremia with RLE necrotizing fascitis: - s/p debridement and wound vac. - wound cx mostly with GAS, MSSA. One (superficial) wiht PsA. - currently on Ancef therapy directly to likely responsible pathogens. -clinically improving. wbc trending down. -f/u blood cx from 09/17/16 ngtd Meds ancef 2g q8- 09/17 s/p vanco, invanz, clinda Subjective: afebrile. s/o rle pain. has wound vac in place at present. denies sob, abd pain or diarrhea. Objective: Vital Signs Temp Pulse Resp BP Pulse Ox 36.8 C 83 16 108/62 93 09/23/16 08:00 09/23/16 08:00 09/23/16 08:00 09/23/16 08:00 09/23/16 08:00 Microbiology 09/15/16 15:15 Gram Stain - Final Leg - Eswab Anaerobic Culture - Final Streptococcus Pyogenes Grp A Staphylococcus Aureus 09/15/16 15:15 Gram Stain - Final Leg - Eswab Anaerobic Culture - Final Streptococcus Pyogenes Grp A Staphylococcus Aureus 09/17/16 04:55 Blood Culture - Final Blood 09/17/16 04:43 Blood Culture - Final Blood Laboratory Results 09/21/16 04:35 09/21/16 04:35 09/22/16 09/23/16 09/24/16 05:59 05:59 05:59 Intake Total 200 800 Output Total 1100 2750 300 Balance -900 -1950 -300 - Physical Exam General Appearance: alert, no apparent distress Respiratory: lungs clear Cardiac/Chest: regular rate, rhythm Extremities: swelling Abdomen: normal bowel sounds, non-tender, soft, No distended Skin: other (large wound RLE with wound vac present. no ariana-vac erythema. tender. less overall swelling) ICD10 Worksheet Patient Problems: Problems Problem Status Diagnosed Cellulitis Acute Knee contusion Acute
--- NOTE | 2016-09-23 15:18 | HOSPPROG ---
Hospitalist Progress Note Assessment/Plan: 55-year-old male presents emergency room complaining of leg pain. Is my 1st encounter with the patient, chart reviewed. Patient care discussed with Dr. Bowman of Infectious Disease. * Necrotizing soft tissue infection of leg - GAS -s/p I&D necrotic material extending through fascia into muscle - status post debridement. Wound VAC on - IV Ancef * will need skin graft later this week or next * Severe sepsis - improved - BC + GAS * resolved * normal a.m. cortisol * ARF - resolved * Homeless/blind * Schizophrenia - untreated * disposition plan unclear reviewed with case management Subjective: Up at the edge of the bed. Denies any pain currently. Slept well last night. Eating breakfast. Objective: Vital Signs Temp Pulse Resp BP Pulse Ox 36.8 C 83 16 108/62 93 09/23/16 08:00 09/23/16 08:00 09/23/16 08:00 09/23/16 08:00 09/23/16 08:00 Microbiology 09/15/16 15:15 Gram Stain - Final Leg - Eswab Anaerobic Culture - Final Streptococcus Pyogenes Grp A Staphylococcus Aureus 09/15/16 15:15 Gram Stain - Final Leg - Eswab Anaerobic Culture - Final Streptococcus Pyogenes Grp A Staphylococcus Aureus Laboratory Results 09/21/16 04:35 09/21/16 04:35 09/22/16 09/23/16 09/24/16 05:59 05:59 05:59 Intake Total 200 800 Output Total 1100 2750 300 Balance -900 -1950 -300 PT 15.3 SEC (12.0-15.0) H 09/17/16 11:40 INR 1.21 (0.83-1.16) H 09/17/16 11:40 - Physical Exam Constitutional: no apparent distress, appears nourished, not in pain Eyes: anicteric sclera, No PERRL, No EOMI Ears, Nose, Mouth, Throat: moist mucous membranes, hearing normal, ears appear normal Cardiovascular: tachycardia, No JVD, No edema Respiratory: no respiratory distress, no rales or rhonchi, reduced air movement Gastrointestinal: No tenderness, No ascites, No guarding Skin: warm, induration, other (Wound VAC) Musculoskeletal: no joint effusions, muscular tenderness, generalized weakness Neurologic: AAOx3 Psychiatric: interacting appropriately, not anxious, not encephalopathic ICD10 Worksheet Patient Problems: Problems Problem Status Diagnosed Cellulitis Acute Knee contusion Acute
[2016-09-23] MEDS: oxyCODONE IR 5 MG TAB PO PRN (22:03)
[2016-09-24] MEDS: ceFAZolin 2 GM in D5W 100 ML IV SCH ×3 (05:32→21:54)
[2016-09-24] MEDS: ENOXAPARIN 40 MG/0.4 ML SYR SC SCH (09:55)
--- NOTE | 2016-09-24 14:06 | SOAPPROG ---
SOAP Progress Note Assessment/Plan: Assessment: 55yo M s/p RLE debridement now c VAC. Dr. Wolfe changed vac yesterday. Vac to suction Will change Thursday Seen with Dr. Mejia S: No complaints this morning O: laying in bed, comfortable, NAD RLE wound vac to suction. No surrounding erythema Objective: Vital Signs Temp Pulse Resp BP Pulse Ox 36.8 C 83 20 123/66 H 95 09/24/16 07:16 09/24/16 07:16 09/24/16 07:16 09/24/16 07:16 09/24/16 07:16 Laboratory Results 09/21/16 04:35 09/21/16 04:35 09/23/16 09/24/16 09/25/16 05:59 05:59 05:59 Intake Total 800 800 Output Total 2750 2150 Balance -1950 -1350 PT 15.3 SEC (12.0-15.0) H 09/17/16 11:40 INR 1.21 (0.83-1.16) H 09/17/16 11:40 ICD10 Worksheet Patient Problems: Problems Problem Status Diagnosed Cellulitis Acute Knee contusion Acute
--- NOTE | 2016-09-24 15:15 | HOSPPROG ---
Hospitalist Progress Note Assessment/Plan: 55-year-old male presents emergency room complaining of leg pain. * Necrotizing soft tissue infection of leg - GAS -s/p I&D necrotic material extending through fascia into muscle - status post debridement. Wound VAC on will be changed again on Thursday per surgery - IV Ancef * will need skin graft later this week or next per surgery recommendations * Severe sepsis - improved - BC + GAS * resolved * normal a.m. cortisol * ARF - resolved * Homeless/blind * Schizophrenia - untreated * disposition Patient has been accepted at [facility] Will await surgery is okay for him to be discharged there Requires further surgical intervention in the hospital setting at this time Subjective: Up in the chair. No specific complaints. Wound VAC intact. Pain is well controlled. Objective: Vital Signs Temp Pulse Resp BP Pulse Ox 36.8 C 83 20 123/66 H 95 09/24/16 07:16 09/24/16 07:16 09/24/16 07:16 09/24/16 07:16 09/24/16 07:16 Laboratory Results 09/21/16 04:35 09/21/16 04:35 09/23/16 09/24/16 09/25/16 05:59 05:59 05:59 Intake Total 800 800 Output Total 2750 2150 Balance -1950 -1350 PT 15.3 SEC (12.0-15.0) H 09/17/16 11:40 INR 1.21 (0.83-1.16) H 09/17/16 11:40 - Physical Exam Constitutional: no apparent distress, not in pain Eyes: anicteric sclera, No PERRL Ears, Nose, Mouth, Throat: moist mucous membranes, hearing normal Cardiovascular: No JVD, No edema Respiratory: no respiratory distress, reduced air movement Gastrointestinal: No tenderness, No ascites Skin: warm, other (Wound VAC) Musculoskeletal: normal joint ROM, generalized weakness Neurologic: AAOx3 Psychiatric: interacting appropriately, not anxious ICD10 Worksheet Patient Problems: Problems Problem Status Diagnosed Cellulitis Acute Knee contusion Acute
[2016-09-24] MEDS: oxyCODONE IR 5 MG TAB PO PRN (21:54)
[2016-09-25] MEDS: oxyCODONE IR 5 MG TAB PO PRN (05:49)
[2016-09-25] MEDS: ceFAZolin 2 GM in D5W 100 ML IV SCH ×3 (05:49→22:45)
--- NOTE | 2016-09-25 09:05 | HOSPPROG ---
Hospitalist Progress Note Assessment/Plan: 55-year-old male presents emergency room complaining of leg pain. Today is my 1st encounter with the patient. Chart reviewed. # Group A sepsis/bacteremia with right lower extremity necrotizing fasciitis * status post I and D. Necrotic material extending to the fascia into the muscle * wound VAC * Ancef * Will need a skin graft * 2nd set of blood cultures negative * Pain is well managed # severe sepsis * resolving * ARF - resolved * anemia * will follow * Homeless/blind * Schizophrenia - untreated/: Cooperative * disposition * to go to [place] when ready for discharge Subjective: patient has no complaints of pain. Resting comfortably in his room Objective: Vital Signs Temp Pulse Resp BP Pulse Ox 36.7 C 96 14 124/69 H 96 09/25/16 07:29 09/25/16 07:29 09/25/16 07:29 09/25/16 07:29 09/25/16 07:29 Laboratory Results 09/21/16 04:35 09/21/16 04:35 09/24/16 09/25/16 09/26/16 05:59 05:59 05:59 Intake Total 800 1100 350 Output Total 2150 1200 550 Balance -1350 -100 -200 PT 15.3 SEC (12.0-15.0) H 09/17/16 11:40 INR 1.21 (0.83-1.16) H 09/17/16 11:40 - Physical Exam Constitutional: not in pain, chronically ill appearing Ears, Nose, Mouth, Throat: hearing normal Cardiovascular: regular rate and rhythym Respiratory: no respiratory distress, no rales or rhonchi Gastrointestinal: normoactive bowel sounds Skin: other ( wound VAC in place on his right lower extremity) Musculoskeletal: generalized weakness Neurologic: AAOx3 Psychiatric: interacting appropriately, not anxious ICD10 Worksheet Patient Problems: Problems Problem Status Diagnosed Cellulitis Acute Knee contusion Acute
[2016-09-25] MEDS: ENOXAPARIN 40 MG/0.4 ML SYR SC SCH (09:45)
--- NOTE | 2016-09-25 16:40 | PCMIDPN ---
Assessment/Plan: Assessment/Plan: * Right lower extremity necrotizing fasciitis/abscess due to GAS (Group A strep ) and MSSA with concomitant GAS bacteremia: Wound bed with clean base and no active signs of soft tissue infection. Plan to complete 2 weeks of antibiotics post clearance of bacteremia. End date will be 10/01/2016 for patient cefazolin. Repeat CBC and CMP on cefazolin. Will follow peripherally. Please call with questions. 09/25/16 16:37 Subjective: Patient without specific complaints. No diarrhea. Objective: Vital Signs Temp Pulse Resp BP Pulse Ox 36.9 C 77 18 114/59 L 96 09/25/16 16:00 09/25/16 16:00 09/25/16 16:00 09/25/16 16:00 09/25/16 16:00 Laboratory Results 09/21/16 04:35 09/21/16 04:35 09/24/16 09/25/16 09/26/16 05:59 05:59 05:59 Intake Total 800 1100 350 Output Total 2150 1200 550 Balance -1350 -100 -200 Cefazolin # 9 (end date for antibiotics 10/01/2016) - Physical Exam General Appearance: alert, no apparent distress EENT: pharynx normal, No scleral icterus Cardiac/Chest: regular rate, rhythm Extremities: inflammation (Right lower extremity wound examined with wound VAC off; extensive granulation present with some areas of visible tendon superiorly which appear viable; no purulence or surrounding cellulitis) Abdomen: non-tender, No distended ICD10 Worksheet Patient Problems: Problems Problem Status Diagnosed Cellulitis Acute Knee contusion Acute
[2016-09-26] MEDS: ceFAZolin 2 GM in D5W 100 ML IV SCH (05:38)
[2016-09-26 06:10] LABS: ALANINE AMINOTRANSFERASE 28 IU/L (21-72); ALBUMIN 2.3 g/dL (3.5-5.0); ALKALINE PHOSPHATASE 86 IU/L (38-126); ANION GAP 5 mEq/L (8-16); ASPARTATE AMINOTRANSFERASE 24 IU/L (17-59); BILIRUBIN,TOTAL 0.5 mg/dL (0.1-1.4); BILIRUBIN-CONJUGATED 0.3 mg/dL (0.0-0.5); BILIRUBIN-UNCONJUGATED 0.2 mg/dL (0.0-1.1); CALCIUM 8.5 mg/dL (8.5-10.4); CARBON DIOXIDE 29 mEq/l (22-31); CHLORIDE 104 mEq/L (97-110); CREATININE 0.6 mg/dL (0.7-1.3); GLOMERULAR FILTRATION RATE > 60; GLUCOSE 95 mg/dL (70-100); POTASSIUM 4.4 mEq/L (3.5-5.2); SODIUM 138 mEq/L (134-144); TOTAL PROTEIN 5.7 g/dL (6.3-8.2)
[2016-09-26 06:11] LABS: % IMMATURE GRANULYOCYTES 0.7 % (0.0-1.1); ABSOLUTE IMMATURE GRANULOCYTES 0.11 10^3/uL (0.00-0.10); ADD DIFF? NO; ADD MORPH? NO; ADD SCAN? NO; ATYPICAL LYMPHOCYTE FLAG 60 (0-99); FRAGMENT RBC FLAG 0 (0-99); HEMOGLOBIN 9.9 g/dL (13.7-17.5); LEFT SHIFT FLG 0 (0-99); LIPEMIA HEMOLYSIS FLAG 80 (0-99); MEAN CELL HEMOGLOBIN 29.4 pg (27.9-34.1); MEAN PLATELET VOLUME 8.4 fL (8.7-11.7); PLATELET CLUMPS FLAG 0 (0-99); PLATELET COUNT 455 10^3/uL (150-400); RED BLOOD CELL COUNT 3.37 10^6/uL (4.40-6.38); RED CELL DISTRIBUTION WIDTH 13.2 % (11.5-15.2)
--- NOTE | 2016-09-26 09:35 | HOSPPROG ---
Hospitalist Progress Note Assessment/Plan: 55-year-old male presents emergency room complaining of leg pain. # Group A sepsis/bacteremia with right lower extremity necrotizing fasciitis * status post I and D. Necrotic material extending to the fascia into the muscle * wound VAC changed today * Ancef * 2nd set of blood cultures negative * Pain is well managed * will see surgeon next week for f/u care and plans of wound grage # severe sepsis * resolving * ARF - resolved *leukocytosis * no fever * surgeon notes wound looks good * anemia * will follow * Homeless/blind * Schizophrenia - untreated/: Cooperative * disposition * [place] today Subjective: Bharathi has no complaints. Feeling well. Objective: Vital Signs Temp Pulse Resp BP Pulse Ox 36.4 C 89 12 104/61 96 09/26/16 07:39 09/26/16 07:39 09/26/16 07:39 09/26/16 07:39 09/26/16 07:39 Laboratory Results 09/26/16 05:40 09/26/16 05:40 09/25/16 09/26/16 09/27/16 05:59 05:59 05:59 Intake Total 1100 850 Output Total 1200 2250 250 Balance -100 -1400 -250 PT 15.3 SEC (12.0-15.0) H 09/17/16 11:40 INR 1.21 (0.83-1.16) H 09/17/16 11:40 - Physical Exam Constitutional: no apparent distress, chronically ill appearing Ears, Nose, Mouth, Throat: hearing normal Cardiovascular: regular rate and rhythym Respiratory: no respiratory distress Gastrointestinal: normoactive bowel sounds Skin: warm, other (wound vac in place ) Musculoskeletal: generalized weakness Neurologic: AAOx3 Psychiatric: interacting appropriately ICD10 Worksheet Patient Problems: Problems Problem Status Diagnosed Cellulitis Acute Knee contusion Acute
--- NOTE | 2016-09-26 10:14 | SOAPPROG ---
SOAP Progress Note Assessment/Plan: Assessment/Plan - 55yo M s/p RLE debridement now c VAC - VAC malfunctioned yesterday, W-D placed. Dressing taken down today, no necrotic tissue and overall has excellent granulation bed, unclear why his WBC spiked to 15 but his leg doesnt appear to be harboring anything which would need further debridement. Will plan for VAC at bedside today, eval next week for poss STSG 09/16/16 10:44 09/19/16 16:35 09/20/16 08:38 09/22/16 10:33 09/23/16 10:55 09/26/16 10:12 Subjective: Doing well, feels well. Pain well controlled Objective: Vital Signs Temp Pulse Resp BP Pulse Ox 36.4 C 89 12 104/61 96 09/26/16 07:39 09/26/16 07:39 09/26/16 07:39 09/26/16 07:39 09/26/16 07:39 Laboratory Results 09/26/16 05:40 09/26/16 05:40 09/25/16 09/26/16 09/27/16 05:59 05:59 05:59 Intake Total 1100 850 Output Total 1200 2250 250 Balance -100 -1400 -250 PT 15.3 SEC (12.0-15.0) H 09/17/16 11:40 INR 1.21 (0.83-1.16) H 09/17/16 11:40 ICD10 Worksheet Patient Problems: Problems Problem Status Diagnosed Cellulitis Acute Knee contusion Acute
--- NOTE | 2016-09-26 10:24 | WOCRNPDOC ---
[facility] Advanced Assessment Note - Skin Integrity Problem, Advanced Assess Right Lower Leg Dressing Type: ABD Pad, Gauze Dressing Description: Intact, Shadowed Exudate Amount: Minimal Exudate Characteristic(s): Serosanguinous Integumentary Issue Intervention: Dressing Changed Prerna Wound Swelling: Mild Wound Bed Color: Red Wound Bed Constitution: Granulation Tissue (95%), Undermining (11- 4 oclock), Tendon (5%) Skin Integrity Problem Comment: Flushed with ns. 5 pieces of black foam to wound bed: 1 large block and 1 small block. Adaptic touch over tendon at 3 oclock. Suction resarted at -[address] suction. Dr. Wolfe visualized wound bed. Maggie ELLSWORTH in room for care along with two [employer] student RN's. Left Lower Leg Surgical Wound/Incision Dressing Type: Packing Exudate Amount: Minimal Exudate Characteristic(s): Cloudy, Seropurulent Wound Bed Color: Crewe Wound Bed Constitution: Smooth Tissue, Undermining (circumferentially 1 cm) Wound Edges: Not Attached Site Measurement - Head-to-Toe Length X Width X Depth (cm): 1.3x1.3x1 Skin Integrity Problem Comment: Flushed with ns. Placed 1/2 a hydrofera blue ready tunneling strip (cut lengthwise) and then moistened with ns. Covered with drain sponge and Tape. Unclear if packing was too moist as it was over packed or whether wound was draining a lot. Will check in again on Thursday to reassess.
[2016-09-26] MEDS: ENOXAPARIN 40 MG/0.4 ML SYR SC SCH (10:46)
--- NOTE | 2016-09-26 12:11 | PDIAF ---
- Diagnosis Diagnosis: RLE severe cellulitis with abscess Code Status: Full Code - Medication Management Discharge Medications: Medications to Continue on Transfer NK [No Known Home Meds] 09/15/16 [Last Taken Unknown] [facility] Antibiotics: cefazolin 2g IV q 8 hours [facility] Antibiotic Stop Date: 10/01/16 Discharge Medications: Refer to the Discharge Home Medication list for PRN reason. PICC Care - Routine: Yes - Orders Services needed: Registered Nurse - Labs/Radiology CBC Date: 09/29/16 CMP Date: 09/29/16 - Follow Up Care Current Providers and Referrals: Patient,NotPresent [Unknown] - As per Instructions
--- NOTE | 2016-09-26 12:20 | PDIAF ---
- Diagnosis Diagnosis: RLE severe cellulitis with abscess Code Status: Full Code - Medication Management Discharge Medications: Medications to Continue on Transfer Acetaminophen [Tylenol 325mg (*)] 650 mg PO Q4 PRN #0 tab 09/26/16 [Last Taken Unknown] ceFAZolin 2 GM/DEXTROSE [Ancef 2 gm (Premix)] 100 ml IV Q8HRS #0 bag 09/26/16 [ Last Taken Unknown] Dry Kiln Burner Antibiotics: cefazolin 2g IV q 8 hours Dry Kiln Burner Antibiotic Stop Date: 10/01/16 Discharge Medications: Refer to the Discharge Home Medication list for PRN reason. PICC Care - Routine: Yes - Orders Services needed: Registered Nurse Diet Recommendation: no restrictions on diet Diet Texture: Regular Texture Diet Equipment: wound vac Additional: Make appt to see Dr Wolfe next week for follow up care. Also, see Dr De La Rosa in one week. - Labs/Radiology CBC Date: 09/29/16 CMP Date: 09/29/16 - Follow Up Care Current Providers and Referrals: Patient,NotPresent [Unknown] - As per Instructions Georges Wolfe MD [Medical Doctor] - Ayden De La Rosa MD [Medical Doctor] -
[2016-09-26] MEDS ORDERED: ceFAZolin 2 GM/DEXTROSE 100 ML IV SCH (14:00)
[2016-09-26 15:03] VITALS: BP 112/66; PULSE 86; RESP 14; TEMP 97.7; O2SAT 97
--- NOTE | 2016-09-26 18:06 | GDS ---
[f rep st] DISCHARGE SUMMARY DISCHARGE DIAGNOSES: 1. Group A sepsis/bacteremia with right lower extremity necrotizing fasciitis. 2. Severe sepsis. 3. Acute renal failure. 4. Leukocytosis. 5. Anemia. 6. Homelessness. 7. Schizophrenia. BRIEF HISTORY: The patient is a 55-year-old male who presented to the emergency room with leg pain. He is blind and homeless. He was evaluated by the police who noticed that his leg looked very poor. In the emergency room, it was noted that he had a very severe infection in his leg. General Surgery was consulted. He was brought to the emergency room and found to have an abscess, for which he underwent an incision and drainage by Dr. Wolfe. The abscess was found to go through the fascia and into the muscle. He was subsequently seen by the infectious disease doctor, Dr. Mai. Blood cultures were sent and he grew out Streptococcus pyogenes group A. He was treated with vancomycin. On September 18, he had an incision and drainage with wound VAC placement and debridement. He improved nicely through his stay. The plan for him is to be discharged to [facility] with a wound VAC in place. He will follow up with Dr. Georges Wolfe in the outpatient setting. In addition, he will follow up with the Infectious Disease team. HOSPITAL COURSE: 1. Group A sepsis/bacteremia with right lower extremity necrotizing fasciitis. He is status post I and D. his wound VAC was changed today. He is on Ancef. 2nd set of blood cultures are negative. He will see the surgeon next week for followup care and plans for skin graft. 2. Severe sepsis, resolved. 3. Acute renal failure, resolved. 4. Leukocytosis. He has no fever. The surgeon looked at the wound today. It shows good granulation. 5. Anemia, stable. 6. Homelessness. He will be staying at [facility]. 7. Schizophrenia. He has been cooperative and calm during his stay. PENDING LABS AND TEST: None. CONDITION AT DISCHARGE: Stable. Blood pressure is 101/56, heart rate is 92, respiratory rate is 12, O2 saturation on room air 96%, temperature 37 degrees Celsius. DISCHARGE MEDICATIONS: Please see the EMR. DISCHARGE INSTRUCTIONS: 1. Wound VAC care per [facility]. 2. Follow up with Dr. Wolfe next week. 3. Follow up with Dr. De La Rosa next week. 4. If he develops fever, chills, worsening redness, swelling or purulent drainage from his left lower extremity, return to the ER. Greater than 30 minutes discharging and coordinating care. Copy requested to: Dr. De La Rosa /[id number]/MODL MTDD
--- NOTE | 2016-09-29 16:52 | PQFORM ---
PHYSICIAN QUERY FORM Needs Your Response This query form is being sent to you to assure this patient record is coded properly. Please respond to the question below: RIGHT OF WAY WORKER QUESTION: Dear Dr. Wolfe, For coding purposes (there is a different code choice for excisional versus non excisional debridement)- please clarify if the debridement done on the 15 September 2016 was: _X__~ Excisional ___~ Non Excisional ___~ Other Thank You Aishwarya العلي [facility]/Coding Dept [phone] INSTRUCTIONS FOR RESPONSE: Answer question by clicking on the "Edit Document" button. Move cursor to area below the stars. When complete, hit "Save." Click on the "Sign" button, then click "Sign" again. Type in your PIN and hit "Enter." Biopsy was excisional MTDD
--- NOTE | 2016-09-29 16:54 | PQFORM ---
PHYSICIAN QUERY FORM Needs Your Response This query form is being sent to you to assure this patient record is coded properly. Please respond to the question below: MANAGER GIFT QUESTION: Dear Dr. Wolfe, For coding purposes (there is a different code choice for excisional versus non excisional debridement)- please clarify if the debridement done on the 18 September 2016 was: __x_~ Excisional ___~ Non Excisional ___~ Other Thank You Aishwarya العلي [facility]/Coding Dept [phone] INSTRUCTIONS FOR RESPONSE: Answer question by clicking on the "Edit Document" button. Move cursor to area below the stars. When complete, hit "Save." Click on the "Sign" button, then click "Sign" again. Type in your PIN and hit "Enter." Biopsy was excisional MTDD
== END 2016-09-26 16:58 | DRG 853 ==
LOC: EDUNIT# → F2N 11:28 → UNDODISIN 09-19 17:48 → F3E 09-20 14:25
PROVIDERS: ADMIT Internal Medicine; ATTEND Internal Medicine
PROC: 0JBN0ZZ Excision of Right Lower Leg Subcutaneous Tissue and Fascia, Open Approach (ICD-10-PCS; principal; 2016-09-15 13:45)
PROC: 0J9N0ZZ Drainage of Right Lower Leg Subcutaneous Tissue and Fascia, Open Approach (ICD-10-PCS; principal; 2016-09-15 13:45)
PROC: 02HV33Z Insertion of Infusion Device into Superior Vena Cava, Percutaneous Approach (ICD-10-PCS; 2016-09-17)
PROC: 0J9N0ZZ Drainage of Right Lower Leg Subcutaneous Tissue and Fascia, Open Approach (ICD-10-PCS; 2016-09-18 10:00)
PROC: 0JBN0ZZ Excision of Right Lower Leg Subcutaneous Tissue and Fascia, Open Approach (ICD-10-PCS; 2016-09-18 10:00)
PROC: 02HV33Z Insertion of Infusion Device into Superior Vena Cava, Percutaneous Approach (ICD-10-PCS; 2016-09-19)
DX: A40.0 Sepsis due to streptococcus, group A (principal); M72.6 Necrotizing fasciitis; N17.9 Acute kidney failure, unspecified; L02.415 Cutaneous abscess of right lower limb; L03.115 Cellulitis of right lower limb; R65.20 Severe sepsis without septic shock; D64.9 Anemia, unspecified; F20.9 Schizophrenia, unspecified; H54.0 Blindness, both eyes; Z59.0 Homelessness; Z72.0 Tobacco use; Z23 Encounter for immunization
CPT/HCPCS: 96365; 97110-GP; 97116-GP; 97162-GP; 97166-GO; 97530-GO; 97530-GP; 97535-GO; C1751; G0009; G8978-GP-CK; G8979-GP-CI; G8987-GO-CK; G8988-GO-CI; J0690; J1100; J1170; J1335; J1650; J1956; J2405; J2704; J3010; J3370

== ENCOUNTER 2016-10-18 17:21 | Emergency (ER) | payer OTHER, MEDICAID ==
--- NOTE | 2016-10-18 17:40 | EDPHY ---
H & P HPI/ROS: CHIEF COMPLAINT: Wound infection HISTORY OF PRESENT ILLNESS: patient has a chronic wound to the right lower extremity anterior choudhary. THis has a wound VAC in place. This is from prior trauma that ended up with subsequent significant infection. The wound VAC has been placed since that time. HE has a check periodically, most recently 2 days ago at his assisted living facility by wound care nurse. He has had some increasing pain in the area times, and they reports subjective fever. But otherwise no complaints. He is at baseline on his health status. He has no chest pain or shortness of breath. No cough or congestion. No nausea or vomiting. NO changes in sensory of the lower extremity. The pain is minimally worse than normal for her with ambulation. It improves at rest. Does not radiate. NO new trauma to the area. EMS reports that the wound VAC was turned off, but they have no idea of knowing when this happened. SInce that time the facility was concerned about infection due to appearance of what they feel is purulence around the sides of the lower back. No other associated complaints or modifying factors REVIEW OF SYSTEMS: Ten systems reviewed and are negative unless otherwise noted in the HPI EXAMINATION General Appearance: Alert, no distress Head: normocephalic, atraumatic Eyes: congenital blindness. ENT, Mouth: Mucous membranes moist. Uvula midline. NO erythema or edema Neck: Normal inspection, supple, non-tender Respiratory: Lungs are clear to auscultation. No wheezing, rhonchi or crackles. Cardiovascular: Regular rate and rhythm Pre pulses intact distally with symmetric DP and PT pulses are 2+. Gastrointestinal: Abdomen is soft and nontender Back: non-tender, no bony abnormalities Neurological: A&O, nonfocal, Strength is symmetric in all limbs. Skin: Warm and dry, no rash . Right lower extremity: THere is a 25 by 10 cm wound with wound VAC in place. Mild granulation versus purulence around the outer edges of the wound under the wound VAC while in place. Neurovascular intact distal to the wound. NO surrounding erythema, fluctuance or induration Extremities: tenderness surrounding the wound VAC. No other tenderness. Range of motion is intact about both lower extremities at all joints. Neurovascular intact distal to his right chronic wound Psychiatric: Mood and affect normal DIFFERENTIAL DIAGNOSES: Including but not limited to chronic right lower extremity wound, chronic wound infection, cellulitis, vasculitis, venous stasis MDM: 5:30 p.m. right lower extremity, anterior choudhary chronic wound. The wound VAC was turned off because of serosanguineous drainage recently. He has also had increasing pain. He was sent here from his assisted living residence due to concern for worsening wound infection. He is hemodynamically stable in no acute distress. He is afebrile here despite subjective fevers at his residence. We are removing the wound VAC, we will irrigate it and replace the wound VAC. 5:40 p.m. wound VAC has been removed and the wound has been irrigated. There is excellent appearance of the wound. There is good granulation with a very nice, red appearance to the wound. There is no purulence. NO area of necrosis. The wound borders are well vascularized. There is a wet to dry dressing on the wound until we can obtain materials to replace the wound VAC. 6:15 p.m. Sally ELLSWORTH has arranged for the patient's wound VAC to be replaced when he returns to his residence tonight. We will dress the wound with a wet to dry dressing. He will be discharged home in stable condition and transported back to his residence for replacement of the wound VAC. Contact the physician on Thursday for definitive care. Return to the ER for any pain, true fever or concerned about the wound. SUPERVISION: Shared evaluation with attending physician Source: Patient, EMS, Old records Exam Limitations: No limitations - Medical/Surgical History Hx Asthma: No Hx Chronic Respiratory Disease: No Hx Diabetes: No Hx Cardiac Disease: Yes Hx Renal Disease: No Hx Cirrhosis: No Hx Alcoholism: No Hx HIV/AIDS: No Hx Splenectomy or Spleen Trauma: No Other PMH: HTN. PS. legally blind - Social History Smoking Status: Former smoker Constitutional: Initial Vital Signs Heart Rate 102 H 10/18/16 17:45 Respiratory Rate 18 10/18/16 17:45 Blood Pressure 128/98 H 10/18/16 17:45 O2 Sat (%) 96 10/18/16 17:45 O2 Delivery Mode Room Air Allergies/Adverse Reactions: No Known Allergies Allergy (Verified 09/15/16 09:25) Home Medications: Medication Instructions Recorded Acetaminophen [Tylenol 325mg (*)] 650 mg PO Q4 PRN #0 tab 09/26/16 ceFAZolin 2 GM/DEXTROSE [Ancef 2 100 ml IV Q8HRS #0 bag 09/26/16 gm (Premix)] Medical Decision Making - Data Points Laboratory Results: Laboratory Results 10/18/16 Unknown 10/18/16 Unknown 10/18/16 10/18/16 Unknown Unknown WBC 13.61 10^3/uL H 10^3/uL (3.80-9.50) RBC 3.56 10^6/uL L 10^6/uL (4.40-6.38) Hgb 10.1 g/dL L g/dL (13.7-17.5) Hct 31.9 % L % (40.0-51.0) MCV 89.6 fL fL (81.5-99.8) MCH 28.4 pg pg (27.9-34.1) MCHC 31.7 g/dL L g/dL (32.4-36.7) RDW 13.4 % % (11.5-15.2) Plt Count 515 10^3/uL H 10^3/uL (150-400) MPV 8.4 fL L fL (8.7-11.7) Neut % (Auto) 70.9 % % (39.3-74.2) Lymph % (Auto) 16.3 % % (15.0-45.0) [place]ell % (Auto) 7.6 % % (4.5-13.0) Eos % (Auto) 3.7 % % (0.6-7.6) Baso % (Auto) 0.3 % % (0.3-1.7) Nucleat RBC Rel Count 0.0 % % (0.0-0.2) Absolute Neuts (auto) 9.66 10^3/uL H 10^3/uL (1.70-6.50) Absolute Lymphs (auto) 2.22 10^3/uL 10^3/uL (1.00-3.00) Absolute Monos (auto) 1.03 10^3/uL H 10^3/uL (0.30-0.80) Absolute Eos (auto) 0.50 10^3/uL H 10^3/uL (0.03-0.40) Absolute Basos (auto) 0.04 10^3/uL 10^3/uL (0.02-0.10) Absolute Nucleated RBC 0.00 10^3/uL 10^3/uL (0-0.01) Immature Gran % 1.2 % H % (0.0-1.1) Immature Gran # 0.16 10^3/uL H 10^3/uL (0.00-0.10) Sodium 136 mEq/L mEq/L (134-144) Potassium 4.3 mEq/L mEq/L (3.5-5.2) Chloride 99 mEq/L mEq/L (97-110) Carbon Dioxide 26 mEq/l mEq/l (22-31) Anion Gap 11 mEq/L mEq/L (8-16) BUN 17 mg/dL mg/dL (7-23) Creatinine 0.7 mg/dL mg/dL (0.7-1.3) Estimated GFR > 60 Glucose 127 mg/dL H mg/dL (70-100) Calcium 8.8 mg/dL mg/dL (8.5-10.4) Total Bilirubin 0.4 mg/dL mg/dL (0.1-1.4) Conjugated Bilirubin 0.4 mg/dL mg/dL (0.0-0.5) Unconjugated Bilirubin 0.0 mg/dL mg/dL (0.0-1.1) AST 26 IU/L IU/L (17-59) ALT 35 IU/L IU/L (21-72) Alkaline Phosphatase 77 IU/L IU/L (38-126) CK-MB (CK-2) Fraction < 0.22 ng/mL ng/mL (0-3.19) Total Protein 6.1 g/dL L g/dL (6.3-8.2) Albumin 2.8 g/dL L g/dL (3.5-5.0) Departure - Departure Disposition: Home, Routine, Self-Care Clinical Impression: Chronic wound of extremity Condition: Good Instructions: Chronic Wound Care (ED) Additional Instructions: follow-up with wound care nurse or physician as previously discussed. Contact him Thursday morning regarding this visit Referrals: Patient,NotPresent [Unknown] - As per Instructions Alonzo Walker MD [Medical Doctor] - As per Instructions
[2016-10-18 18:01] VITALS: RESP 18
[2016-10-18 18:08] LABS: % IMMATURE GRANULYOCYTES 1.2 % (0.0-1.1); ABSOLUTE IMMATURE GRANULOCYTES 0.16 10^3/uL (0.00-0.10); ADD DIFF? NO; ADD MORPH? NO; ADD SCAN? NO; ATYPICAL LYMPHOCYTE FLAG 30 (0-99); FRAGMENT RBC FLAG 0 (0-99); HEMATOCRIT 31.9 % (40.0-51.0); HEMOGLOBIN 10.1 g/dL (13.7-17.5); LEFT SHIFT FLG 10 (0-99); LIPEMIA HEMOLYSIS FLAG 80 (0-99); MEAN CELL HEMOGLOBIN 28.4 pg (27.9-34.1); MEAN CELL HEMOGLOBIN CONCENTR. 31.7 g/dL (32.4-36.7); MEAN CELL VOLUME 89.6 fL (81.5-99.8); MEAN PLATELET VOLUME 8.4 fL (8.7-11.7); PLATELET CLUMPS FLAG 0 (0-99); PLATELET COUNT 515 10^3/uL (150-400); RED BLOOD CELL COUNT 3.56 10^6/uL (4.40-6.38); RED CELL DISTRIBUTION WIDTH 13.4 % (11.5-15.2)
[2016-10-18 18:30] VITALS: BP 105/52; PULSE 95; TEMP 98.6; O2SAT 99
[2016-10-18 18:45] LABS: ALANINE AMINOTRANSFERASE 35 IU/L (21-72); ALBUMIN 2.8 g/dL (3.5-5.0); ALKALINE PHOSPHATASE 77 IU/L (38-126); ANION GAP 11 mEq/L (8-16); ASPARTATE AMINOTRANSFERASE 26 IU/L (17-59); BILIRUBIN,TOTAL 0.4 mg/dL (0.1-1.4); BILIRUBIN-CONJUGATED 0.4 mg/dL (0.0-0.5); CALCIUM 8.8 mg/dL (8.5-10.4); CARBON DIOXIDE 26 mEq/l (22-31); CHLORIDE 99 mEq/L (97-110); CREATININE 0.7 mg/dL (0.7-1.3); GLOMERULAR FILTRATION RATE > 60; GLUCOSE 127 mg/dL (70-100); POTASSIUM 4.3 mEq/L (3.5-5.2); SODIUM 136 mEq/L (134-144); TOTAL PROTEIN 6.1 g/dL (6.3-8.2)
[2016-10-18 19:10] LABS: CREATINE KINASE-MB FRACTION < 0.22 ng/mL (0-3.19)
== END 2016-10-18 19:20 | disposition home or self-care (01) ==
LOC: EDUNIT#
DX: L98.8 Other specified disorders of the skin and subcutaneous tissue (principal); I10 Essential (primary) hypertension; Z87.891 Personal history of nicotine dependence

== ENCOUNTER 2016-11-07 09:57 | Inpatient (IN) | payer OTHER, MEDICAID ==
[~2016-11-07 09:57] MED LIST: BUPIVACAINE 0.5% 30 ML SDV ONE; LIDOCAINE 1% 30 ML SDV ONE; MINERAL OIL 10 ML VIAL TP ONE; THROMBIN (RECOMBINANT) 20,000 UNIT SPRAY TP ONE; ceFAZolin 2 GM/DEXTROSE 100 ML IV ONE
[2016-11-07] MEDS ORDERED: LR 1,000 ML IV ONE (10:52)
[2016-11-07] MEDS ORDERED: ONDANSETRON 4 MG/2 ML VIAL ONE (10:59)
[2016-11-07] MEDS ORDERED: DEXAMETHASONE 4 MG/ML VIAL ONE (10:59)
[2016-11-07] MEDS ORDERED: LIDOCAINE 2% 100 MG/5 ML SYR ONE (10:59)
[2016-11-07] MEDS ORDERED: fentaNYL 250 MCG/5 ML INJ ONE (11:00)
[2016-11-07] MEDS ORDERED: PROPOFOL/EMULSION 500 MG/50 ML BOTTLE IV ONE (11:00)
[2016-11-07] MEDS ORDERED: MIDAZOLAM 2 MG/2 ML VIAL ONE (11:00)
[2016-11-07] MEDS ORDERED: MINERAL OIL 10 ML VIAL TP ONE (11:19)
[2016-11-07] MEDS ORDERED: THROMBIN (RECOMBINANT) 20,000 UNIT SPRAY TP ONE (11:23)
[2016-11-07] MEDS ORDERED: BUPIVACAINE/EPI 0.25% 30 ML SDV ONE (11:23)
[2016-11-07] MEDS ORDERED: METOCLOPRAMIDE 10 MG/2 ML VIAL ONE (11:32)
[2016-11-07] MEDS ORDERED: RANITIDINE 50 MG/2 ML VIAL ONE (11:32)
[2016-11-07] MEDS ORDERED: HYDROmorphONE/DILAUDID 2 MG/ML INJ ONE (11:34)
[2016-11-07] MEDS ORDERED: HYDROmorphONE/DILAUDID 1 MG/ML SYR IVP PRN (12:32)
[2016-11-07] MEDS ORDERED: ONDANSETRON 4 MG/2 ML VIAL IVP PRN (12:32)
--- NOTE | 2016-11-07 12:32 | POSTOPPROG ---
Post Op Note Date of Operation: 11/07/16 Surgeon: Georges Wolfe Anesthesia: GET(General Endotracheal) Pre-op Diagnosis: Open RLE wound Post-op Diagnosis: same Procedure: STSG to RLE, R thigh donor Findings: STSG, VAC to 125mm Hg Inf/Abcess present in the surg proc area at time of surgery?: No EBL: Minimal Drains: Wound Vac
[2016-11-07] MEDS: D5W 1/2 NS W/ 20 KCl/L 1,000 ML IV SCH ×2 (14:22→23:24)
--- NOTE | 2016-11-07 16:53 | SOAPPROG ---
SOAP Progress Note Assessment/Plan: Assessment/Plan POD#0 s/p STSG to RLE - looks good, thigh donor site saturated and changed at bedside. - Otherwise, pain controlled, eating and doing well - Ok for OOB, ambulat PRN. Jus tneeds to make sure he is protecting the VAC'd site as fragile graft is underneath. - Plan for 5 total days VAC, do not change per usual MWF schedule. Will takedown myself next week 11/07/16 16:51 Objective: Vital Signs Temp Pulse Resp BP Pulse Ox 37 C 68 18 100/56 L 100 11/07/16 15:55 11/07/16 15:55 11/07/16 15:55 11/07/16 15:55 11/07/16 15:55 11/06/16 11/07/16 11/08/16 05:59 05:59 05:59 Intake Total 2150 Output Total 20 Balance 2130 ICD10 Worksheet Patient Problems: Problems Problem Status Onset Cellulitis Acute Knee contusion Acute
[2016-11-08 05:02] LABS: % IMMATURE GRANULYOCYTES 0.6 % (0.0-1.1); ABSOLUTE IMMATURE GRANULOCYTES 0.08 10^3/uL (0.00-0.10); ADD DIFF? NO; ADD MORPH? NO; ADD SCAN? NO; ATYPICAL LYMPHOCYTE FLAG 0 (0-99); FRAGMENT RBC FLAG 0 (0-99); HEMATOCRIT 27.3 % (40.0-51.0); HEMOGLOBIN 8.8 g/dL (13.7-17.5); LEFT SHIFT FLG 0 (0-99); LIPEMIA HEMOLYSIS FLAG 80 (0-99); MEAN CELL HEMOGLOBIN 27.9 pg (27.9-34.1); MEAN CELL HEMOGLOBIN CONCENTR. 32.2 g/dL (32.4-36.7); MEAN CELL VOLUME 86.7 fL (81.5-99.8); MEAN PLATELET VOLUME 8.4 fL (8.7-11.7); PLATELET CLUMPS FLAG 10 (0-99); PLATELET COUNT 395 10^3/uL (150-400); RED BLOOD CELL COUNT 3.15 10^6/uL (4.40-6.38); RED CELL DISTRIBUTION WIDTH 14.2 % (11.5-15.2)
[2016-11-08 05:18] LABS: ANION GAP 8 mEq/L (8-16); CALCIUM 8.9 mg/dL (8.5-10.4); CARBON DIOXIDE 26 mEq/l (22-31); CHLORIDE 103 mEq/L (97-110); CREATININE 0.6 mg/dL (0.7-1.3); GLOMERULAR FILTRATION RATE > 60; GLUCOSE 111 mg/dL (70-100); POTASSIUM 4.4 mEq/L (3.5-5.2); SODIUM 137 mEq/L (134-144)
--- NOTE | 2016-11-08 07:38 | SOAPPROG ---
SOAP Progress Note Assessment/Plan: Assessment: comfortable sp stsg rt leg/ vac in place/ donor dressing intact Plan: continue vac and non-weightbearing 11/08/16 07:37 Objective: Vital Signs Temp Pulse Resp BP Pulse Ox 37.1 C 61 18 101/65 96 11/08/16 03:36 11/08/16 03:36 11/08/16 03:36 11/08/16 03:36 11/08/16 03:36 Laboratory Results 11/08/16 04:31 11/08/16 04:31 11/07/16 11/08/16 11/09/16 05:59 05:59 06:59 Intake Total 3120 Output Total 1620 Balance 1500 ICD10 Worksheet Patient Problems: Problems Problem Status Onset Cellulitis Acute Knee contusion Acute
[2016-11-08] MEDS: ENOXAPARIN 40 MG/0.4 ML SYR SC SCH (09:18)
[2016-11-08] MEDS: OXYCODONE/APAP 5/325 TAB PO PRN (14:04)
[2016-11-08] MEDS ORDERED: MAGNESIUM HYDROXIDE 30 ML UDCUP PO PRN (16:27)
[2016-11-08] MEDS ORDERED: ACETAMINOPHEN 325 MG TAB PO PRN (16:27)
[2016-11-08] MEDS ORDERED: SENNOSIDES/DOCUSATE SODIUM TAB PO PRN (16:27)
[2016-11-08] MEDS: D5W 1/2 NS W/ 20 KCl/L 1,000 ML IV SCH (19:12)
[2016-11-09] MEDS: LEVOTHYROXINE 25 MCG TAB PO SCH (04:50)
[2016-11-09] MEDS: D5W 1/2 NS W/ 20 KCl/L 1,000 ML IV SCH (04:50)
[2016-11-09] MEDS: ENOXAPARIN 40 MG/0.4 ML SYR SC SCH (08:30)
--- NOTE | 2016-11-09 09:51 | SOAPPROG ---
SOAP Progress Note Assessment/Plan: Assessment/Plan: 56 Y M s/p STSG and vac RLE. Doing well. No pain. Vac to suction. Surrounding skin soft, no erythema. Donor site xeroform should slough off. Continue to change outer dressing. Possibly PT tomorrow of weight bearing is approved by Dr. Wolfe. Removal of vac over graft per Dr. Wolfe. Continue routine care. 11/09/16 09:49 Objective: Vital Signs Temp Pulse Resp BP Pulse Ox 36.4 C 92 18 119/67 97 11/09/16 07:56 11/09/16 07:56 11/09/16 07:56 11/09/16 07:56 11/09/16 07:56 Laboratory Results 11/08/16 04:31 11/08/16 04:31 11/08/16 11/09/16 11/10/16 04:59 05:59 05:59 Intake Total Output Total 700 Balance -700 ICD10 Worksheet Patient Problems: Problems Problem Status Onset Cellulitis Acute Knee contusion Acute
[2016-11-09] MEDS: OXYCODONE/APAP 5/325 TAB PO PRN (11:23)
[2016-11-10] MEDS: LEVOTHYROXINE 25 MCG TAB PO SCH (05:51)
[2016-11-10] MEDS: ENOXAPARIN 40 MG/0.4 ML SYR SC SCH (08:11)
--- NOTE | 2016-11-10 10:04 | GOP ---
[f rep st] OPERATIVE REPORT DATE OF OPERATION: 11/07/2016 SURGEON: Georges Wolfe MD PROTOTYPE FABRICATOR: None. ANESTHESIA: General endotracheal. PREOPERATIVE DIAGNOSIS: Open right lower extremity wound. POSTOPERATIVE DIAGNOSIS: Open right lower extremity wound. PROCEDURE PERFORMED: Washout with split-thickness skin graft to right lower extremity measuring approximately 21 x 11 cm in total length. FINDINGS: Successful placement of meshed 1:1 split-thickness skin graft using right thigh donor to right lower extremity, covered with wound VAC. SPECIMENS: None. ESTIMATED BLOOD LOSS: 20 cc. DESCRIPTION OF PROCEDURE: The patient was greeted in the preoperative suite. Once again, risks, benefits, and alternatives were discussed. Consent was signed. He was then brought back to the operative suite, placed on the OR table in a supine position. After all anesthesia machines, including SCDs, were on and functioning, World Health Organization time-out was performed. Antibiotics were given on-call to the operating room. General endotracheal anesthesia was then induced without incident. The patient's right lower extremity from the groin down was then prepped and draped in typical sterile fashion. I commenced the procedure by interrogating the right lower leg, ensuring that the granulation tissue had no other concerning findings and/or purulent pockets. After this was sufficient, I turned my attention toward the patient's right thigh. Utilizing the right thigh as the donor site, I successfully used the 2-inch dermatome and harvested multiple pieces of skin from the site. Once this was done, I then placed it in the mesher and successfully meshed it in a 1:1 fashion. After this, I placed it over the granulation wound bed, attached it to the skin edges with mauri. Once I had sufficient coverage, I then placed a piece of Xeroform over which black sponge and wound VAC draped, and then attached it to suction at 125 mmHg without issue. The thigh donor site was infiltrated with local anesthesia covered with topical lidocaine, and a sterile dressing was placed over this. The patient was then extubated in the operative suite and taken to the PACU in satisfactory condition. DRAINS: Wound VAC. COUNTS: All counts were reported as correct x2. /[id number]/MODL MTDD
--- NOTE | 2016-11-10 11:49 | SOAPPROG ---
SOAP Progress Note Assessment/Plan: Assessment/Plan POD#3 s/p STSG to RLE - Looks good, VAC reinforced today but holding suction with appropriate output in canister - Donor site had some fibrinous exudate, dressing changed. Reinforce as necessary. Will cont to change daily to hopefully mitiogate issues with dressing growing into wound - Otherwise doing well, plan to remove VAC Weds. Likely Tx back to [facility] late this week 11/07/16 16:51 11/10/16 11:47 Subjective: Doing well, denies pain. Objective: Vital Signs Temp Pulse Resp BP Pulse Ox 36.9 C 110 H 16 108/72 95 11/10/16 11:43 11/10/16 11:43 11/10/16 11:43 11/10/16 11:43 11/10/16 11:43 Laboratory Results 11/08/16 04:31 11/08/16 04:31 11/09/16 11/10/16 11/11/16 05:59 05:59 05:59 Intake Total 600 Output Total 6855 1528 Balance -8404 -6703 ICD10 Worksheet Patient Problems: Problems Problem Status Onset Cellulitis Acute Knee contusion Acute
[2016-11-10] MEDS: OXYCODONE/APAP 5/325 TAB PO PRN (17:13)
[2016-11-11] MEDS: LEVOTHYROXINE 25 MCG TAB PO SCH (05:29)
[2016-11-11] MEDS: ENOXAPARIN 40 MG/0.4 ML SYR SC SCH (09:19)
[2016-11-11] MEDS: OXYCODONE/APAP 5/325 TAB PO PRN (09:38)
--- NOTE | 2016-11-11 10:22 | SOAPPROG ---
SOAP Progress Note Assessment/Plan: Assessment/Plan POD#4 s/p STSG to RLE - Graft site covered with VAC, appropriate drainage in VAC canister. - Donor site plating equipment tender, took down dressing and replaced with mepitel which should provide better non adherance and hopefully make changes less painful. - Plan to remove VAC tomorrow. Assess graft at that time 11/07/16 16:51 11/10/16 11:47 11/11/16 10:20 Subjective: No complaints. Objective: Vital Signs Temp Pulse Resp BP Pulse Ox 36.7 C 92 16 113/69 96 11/11/16 07:15 11/11/16 07:15 11/11/16 07:15 11/11/16 07:15 11/11/16 07:15 Laboratory Results 11/08/16 04:31 11/08/16 04:31 11/10/16 11/11/16 11/12/16 05:59 05:59 05:59 Intake Total 600 Output Total 1497 4863 Balance -2946 -3926 ICD10 Worksheet Patient Problems: Problems Problem Status Onset Cellulitis Acute Knee contusion Acute
[2016-11-12] MEDS: LEVOTHYROXINE 25 MCG TAB PO SCH (05:14)
[2016-11-12] MEDS: OXYCODONE/APAP 5/325 TAB PO PRN ×2 (05:18→09:57)
[2016-11-12] MEDS: ENOXAPARIN 40 MG/0.4 ML SYR SC SCH (08:43)
--- NOTE | 2016-11-12 10:03 | SOAPPROG ---
SOAP Progress Note Assessment/Plan: Assessment/Plan POD#5 s/p STSG to RLE - VAC taken down, site looks wonderful with 100% graft take. It does smell bad but has no obvious sources of infection or abscess - Wound was covered with mepitel and, ABDs, kerlix and Coban. Will plan to change dressing tomorrow, can change everything but mepitel if saturated. - OK for d/c back to SNF later this week, would like to see a couple days of good changes before d/c 11/07/16 16:51 11/10/16 11:47 11/11/16 10:20 11/12/16 10:01 Subjective: Doing well, no complaints Objective: Vital Signs Temp Pulse Resp BP Pulse Ox 36.6 C 80 12 101/67 97 11/12/16 08:00 11/12/16 08:00 11/12/16 08:00 11/12/16 08:00 11/12/16 08:00 Laboratory Results 11/08/16 04:31 11/08/16 04:31 11/11/16 11/12/16 11/13/16 05:59 05:59 05:59 Intake Total 2252 Output Total 2850 1500 350 Balance -2850 752 -350 ICD10 Worksheet Patient Problems: Problems Problem Status Onset Cellulitis Acute Knee contusion Acute
[2016-11-13] MEDS: LEVOTHYROXINE 25 MCG TAB PO SCH (05:12)
[2016-11-13] MEDS: ENOXAPARIN 40 MG/0.4 ML SYR SC SCH (09:00)
[2016-11-13] MEDS: OXYCODONE/APAP 5/325 TAB PO PRN (10:51)
[2016-11-13] MEDS ORDERED: LACTULOSE 20 GM/30 ML UDCUP PO PRN (15:59)
[2016-11-13] MEDS ORDERED: BISACODYL 10 MG SUPP PR PRN (15:59)
[2016-11-13] MEDS ORDERED: POLYETHYLENE GLYCOL 3350 17 GM PKT PO PRN (15:59)
[2016-11-13] MEDS ORDERED: MAGNESIUM HYDROXIDE 30 ML UDCUP PO PRN (15:59)
--- NOTE | 2016-11-13 16:18 | SOAPPROG ---
SOAP Progress Note Assessment/Plan: Assessment/Plan POD#6 s/p STSG to RLE - site had a little more drainage today, unclear as the graft has still taken and is adhering well. - Site re-dressed with Adaptiq touch and super absorbant dressing, will plan daily changes until drainage slows. - HGere over the weekend to follow. 11/07/16 16:51 11/10/16 11:47 11/11/16 10:20 11/12/16 10:01 11/13/16 16:17 Subjective: Doing well Objective: Vital Signs Temp Pulse Resp BP Pulse Ox 37 C 102 H 18 101/73 94 11/13/16 15:16 11/13/16 15:16 11/13/16 15:16 11/13/16 15:16 11/13/16 15:16 Laboratory Results 11/08/16 04:31 11/08/16 04:31 11/12/16 11/13/16 11/14/16 05:59 05:59 05:59 Intake Total 2252 1200 600 Output Total 1500 2600 600 Balance 752 -1400 0 ICD10 Worksheet Patient Problems: Problems Problem Status Onset Cellulitis Acute Knee contusion Acute
[2016-11-13] MEDS: SENNOSIDES/DOCUSATE SODIUM TAB PO SCH (21:38)
[2016-11-14 04:46] LABS: HEMATOCRIT 30.5 % (40.0-51.0); HEMOGLOBIN 9.9 g/dL (13.7-17.5); MEAN CELL HEMOGLOBIN CONCENTR. 32.5 g/dL (32.4-36.7); MEAN CELL VOLUME 86.2 fL (81.5-99.8); RED BLOOD CELL COUNT 3.54 10^6/uL (4.40-6.38); RED CELL DISTRIBUTION WIDTH 14.9 % (11.5-15.2)
[2016-11-14] MEDS: LEVOTHYROXINE 25 MCG TAB PO SCH (06:19)
[2016-11-14] MEDS: SENNOSIDES/DOCUSATE SODIUM TAB PO SCH ×2 (10:07→21:08)
[2016-11-14] MEDS: ENOXAPARIN 40 MG/0.4 ML SYR SC SCH (10:07)
[2016-11-15] MEDS: LEVOTHYROXINE 25 MCG TAB PO SCH (06:42)
[2016-11-15] MEDS: ENOXAPARIN 40 MG/0.4 ML SYR SC SCH (08:09)
[2016-11-15] MEDS: SENNOSIDES/DOCUSATE SODIUM TAB PO SCH ×2 (08:09→20:25)
--- NOTE | 2016-11-15 23:46 | SOAPPROG ---
SOAP Progress Note Assessment/Plan: Assessment: s/p STSG to right lower extremity Dressings adhered to both wounds - released with saline Mepilex transfer to donor site followed by tegaderms. Change tegaderms prn Adaptic ABD and Gauze applied to lower wound Continue hospital management Will start to remove mauri where graft is lost Will likely need more grafting S: Wounds are tender Donor site pink healthy and clean Graft with about 25% take. Thick purulent exudate over wound. Wound cleansed and redressed Plan: 11/15/16 23:43 Objective: Vital Signs Temp Pulse Resp BP Pulse Ox 36.9 C 95 16 110/67 97 11/15/16 15:08 11/15/16 15:08 11/15/16 15:08 11/15/16 15:08 11/15/16 15:08 Laboratory Results 11/14/16 04:23 11/08/16 04:31 11/14/16 11/15/16 11/16/16 05:59 05:59 05:59 Intake Total 1240 2788 2602 Output Total 1691 2650 1325 Balance -124 386 4740 ICD10 Worksheet Patient Problems: Problems Problem Status Onset Cellulitis Acute Knee contusion Acute
[2016-11-16] MEDS: LEVOTHYROXINE 25 MCG TAB PO SCH (06:08)
[2016-11-16] MEDS: ENOXAPARIN 40 MG/0.4 ML SYR SC SCH (07:37)
[2016-11-16] MEDS: SENNOSIDES/DOCUSATE SODIUM TAB PO SCH ×2 (07:38→20:39)
[2016-11-16] MEDS: OXYCODONE/APAP 5/325 TAB PO PRN ×2 (11:02→20:40)
--- NOTE | 2016-11-16 15:42 | SOAPPROG ---
SOAP Progress Note Assessment/Plan: Assessment: s/p STSG to right lower extremity Continue mepilex transfer and tegaderm to donor site. Change if leaks - otherwise can change on Thursday Adaptic ABD and Gauze applied to lower wound Continue hospital management remove more staple daily Will likely need more grafting S: Wounds are tender but improved from yesterday Donor site dressed Removed about 15 mauri that were only on the skin Graft with about 25% take. Thick purulent exudate over wound but less odor than yesterday and less exudate Wound cleansed and redressed Plan: 11/15/16 23:43 11/16/16 15:41 Objective: Vital Signs Temp Pulse Resp BP Pulse Ox 36.7 C 95 16 123/70 H 97 11/16/16 07:39 11/16/16 07:39 11/16/16 07:39 11/16/16 07:39 11/16/16 07:39 Laboratory Results 11/14/16 04:23 11/08/16 04:31 11/15/16 11/16/16 11/17/16 05:59 05:59 05:59 Intake Total 2780 2602 Output Total 6240 5 1100 Balance 138 577 -1100 ICD10 Worksheet Patient Problems: Problems Problem Status Onset Cellulitis Acute Knee contusion Acute
[2016-11-17 05:03] LABS: % IMMATURE GRANULYOCYTES 0.3 % (0.0-1.1); ABSOLUTE IMMATURE GRANULOCYTES 0.04 10^3/uL (0.00-0.10); ADD DIFF? NO; ADD MORPH? NO; ADD SCAN? NO; ATYPICAL LYMPHOCYTE FLAG 10 (0-99); FRAGMENT RBC FLAG 0 (0-99); HEMATOCRIT 29.9 % (40.0-51.0); HEMOGLOBIN 9.5 g/dL (13.7-17.5); LEFT SHIFT FLG 0 (0-99); LIPEMIA HEMOLYSIS FLAG 80 (0-99); MEAN CELL HEMOGLOBIN 27.5 pg (27.9-34.1); MEAN CELL HEMOGLOBIN CONCENTR. 31.8 g/dL (32.4-36.7); MEAN CELL VOLUME 86.4 fL (81.5-99.8); MEAN PLATELET VOLUME 8.2 fL (8.7-11.7); PLATELET CLUMPS FLAG 0 (0-99); PLATELET COUNT 352 10^3/uL (150-400); RED BLOOD CELL COUNT 3.46 10^6/uL (4.40-6.38); RED CELL DISTRIBUTION WIDTH 15.1 % (11.5-15.2)
[2016-11-17] MEDS: LEVOTHYROXINE 25 MCG TAB PO SCH (05:06)
[2016-11-17] MEDS: OXYCODONE/APAP 5/325 TAB PO PRN ×2 (05:07→18:38)
[2016-11-17] MEDS: SENNOSIDES/DOCUSATE SODIUM TAB PO SCH ×2 (08:06→23:47)
[2016-11-17] MEDS: ENOXAPARIN 40 MG/0.4 ML SYR SC SCH (08:07)
--- NOTE | 2016-11-17 10:10 | SOAPPROG ---
SOAP Progress Note Assessment/Plan: Assessment/Plan POD#9 s/p STSG to RLE - donor site clean, clean mepilex placed - Graft site, peripheral margins with good take, central portion has completely sloughed, unclear etiology who given excellent appearance of granulation preoperatively. Will likely need addl grafting, but want to make sure there isnt an underlying occult infection which caused initial graft failure. Will discuss with partners to find ideal solution - Site redressed, remainder of mauri removed. 11/07/16 16:51 11/10/16 11:47 11/11/16 10:20 11/12/16 10:01 11/13/16 16:17 11/17/16 10:08 Subjective: No complaints Objective: Vital Signs Temp Pulse Resp BP Pulse Ox 37.0 C 94 18 100/59 L 96 11/17/16 07:35 11/17/16 07:35 11/17/16 07:35 11/17/16 07:35 11/17/16 07:35 Laboratory Results 11/17/16 04:33 11/08/16 04:31 11/16/16 11/17/16 11/18/16 05:59 05:59 05:59 Intake Total 5202 5245 Output Total 20240 Balance 577 75 ICD10 Worksheet Patient Problems: Problems Problem Status Onset Cellulitis Acute Knee contusion Acute
--- NOTE | 2016-11-17 17:13 | WOCRNPDOC ---
WOCRN Advanced Assessment Note - Skin Integrity Problem, Advanced Assess Left Lower Leg Dressing Type: Allevyn Life Dressing Description: Clean/Dry, Intact Exudate Amount: Minimal Exudate Characteristic(s): Bloody Integumentary Issue Intervention: Dressing Removed Wound Bed Constitution: Loose Slough Wound Edges: Epithelizing Site Measurement - Head-to-Toe Length X Width X Depth (cm): 0.8x0.8x0.2 Skin Integrity Problem Comment: Small healing traumatic wound on choudhary. 60% healed. Wound bed with some hypergranulation and loose slough that was mechanically debrided with gauze. Pressure applied to acheive hemostasis. Dressing supplies given to Karin ELLSWORTH. Will check wound on or thursday.
[2016-11-17] MEDS ORDERED: diphenhydrAMINE 25 MG CAP PO PRN (17:30)
[2016-11-18] MEDS: OXYCODONE/APAP 5/325 TAB PO PRN (06:02)
[2016-11-18] MEDS: LEVOTHYROXINE 25 MCG TAB PO SCH (06:02)
[2016-11-18] MEDS: SENNOSIDES/DOCUSATE SODIUM TAB PO SCH ×2 (08:56→20:20)
[2016-11-18] MEDS: ENOXAPARIN 40 MG/0.4 ML SYR SC SCH (08:56)
--- NOTE | 2016-11-18 14:43 | SOAPPROG ---
SOAP Progress Note Assessment/Plan: Assessment/Plan POD#10 s/p STSG to RLE - peripheral graft has taken nicely. The middle portion continues to have purulent drainage and is foul smelling. Given the lack of graft take here I am assuming he has persistent infection in the area and will start empiric abx ( last Cx grew out staph, strep and pseudomonas all sensitive to levaquin). Will give one week abx to see how this effects. will likely look to d/c within next day or so back to [facility]. Will have him f/u in 1 week to monitor progress. Would cont just W-D dressings on lower R leg until that time. Donor site would dress daily to QOD with mepilex or similar. 11/07/16 16:51 11/10/16 11:47 11/11/16 10:20 11/12/16 10:01 11/13/16 16:17 11/17/16 10:08 11/18/16 14:41 Objective: Vital Signs Temp Pulse Resp BP Pulse Ox 37.2 C 84 18 114/69 98 11/18/16 08:00 11/18/16 08:00 11/18/16 08:00 11/18/16 08:00 11/18/16 08:00 Laboratory Results 11/17/16 04:33 11/08/16 04:31 11/17/16 11/18/16 11/19/16 05:59 05:59 05:59 Intake Total 2275 1500 1100 Output Total 2200 1500 500 Balance 75 0 600 ICD10 Worksheet Patient Problems: Problems Problem Status Onset Cellulitis Acute Knee contusion Acute
[2016-11-19] MEDS: LEVOTHYROXINE 25 MCG TAB PO SCH (05:09)
[2016-11-19 08:01] VITALS: BP 126/83; PULSE 73; RESP 22; TEMP 98.4; O2SAT 99
[2016-11-19] MEDS: SENNOSIDES/DOCUSATE SODIUM TAB PO SCH (09:54)
[2016-11-19] MEDS: ENOXAPARIN 40 MG/0.4 ML SYR SC SCH (09:55)
--- NOTE | 2016-11-19 10:57 | SOAPPROG ---
SOAP Progress Note Assessment/Plan: Assessment: 56yo male s/p STSG RLE, POD 12 no new issues/complaints PE awake, comfortable RLE dressings removed graft site clean and dry, no surrounding erythema. Right lower leg wound with hypergranulation and central area concerning for breakdown , foot normal pulse to palpation, FROM right ankle Plan: wound care per Dr Wolfe note yesterday ok to d/c to [facility] if bed available, will check back with case mangmt today will need close follow up in office 11/19/16 10:54 11/19/16 10:57 Objective: Vital Signs Temp Pulse Resp BP Pulse Ox 36.9 C 73 22 H 126/83 H 99 11/19/16 07:59 11/19/16 07:59 11/19/16 07:59 11/19/16 07:59 11/19/16 07:59 Laboratory Results 11/17/16 04:33 11/08/16 04:31 11/18/16 11/19/16 11/20/16 05:59 05:59 05:59 Intake Total 1500 2180 600 Output Total 1500 1000 Balance 0 1180 600 ICD10 Worksheet Patient Problems: Problems Problem Status Onset Cellulitis Acute Knee contusion Acute
--- NOTE | 2016-11-19 11:31 | PDIAF ---
- Diagnosis Diagnosis: s/p right leg graft surgery Code Status: Full Code - Medication Management Discharge Medications: Medications to Continue on Transfer Hydrocodone/APAP 5/325 [Lamar 5/325 (*)] 1 tab PO Q4H PRN 11/05/16 [Last Taken Unknown] Magnesium Hydroxide [Milk of Magnesia] 30 ml PO DAILY PRN 11/05/16 [Last Taken Unknown] Hydrocodone/Acetaminophen [[place]amar 5/325 (*)] 1 each PO Q2D 11/07/16 [Last Taken Unknown] Acetaminophen [Tylenol 325mg (*)] 650 mg PO Q4HRS PRN #0 tab 11/19/16 [Last Taken Unknown] Levothyroxine [Synthroid 25 mcg (*)] 25 mcg PO DAILY06 #0 tab 11/19/16 [Last Taken Unknown] levOFLOXACIN [levAQUIN (*)] 750 mg PO DAILY AT 10AM #0 tab 11/19/16 [Last Taken Unknown] oxyCODONE/APAP 5/325 [Percocet 5/325 (*)] 1 - 2 tab PO Q4HRS PRN #0 tab [Last Taken Unknown] 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 - Orders Services needed: Registered Nurse, Physical Therapy, Occupational Therapy Diet Recommendation: no restrictions on diet Diet Texture: Regular Texture Diet Wound Care Instructions: see wound care insrtuctions - Follow Up Care Current Providers and Referrals: ROB MIX [Primary Care Provider] -
--- NOTE | 2016-11-20 18:56 | GDS ---
[f rep st] DISCHARGE SUMMARY REASON FOR ADMISSION: Surgery for chronic leg wound. HOSPITAL COURSE: Patient is a 56-year-old male who underwent surgery by Dr. Wolfe on 7, washout with split-thickness skin graft to right lower extremity. The patient's hospital course was fairly unremarkable. His graft will be watched closely, as there was 1 portion of the graft that may be nonviable. He was discharged with instructions to continue Levaquin once daily. FOLLOWUP: He will follow up with Dr. Wolfe next week in our office. DISPOSITION: He was discharged back to [place] where he resides. /[id number]/MODL
== END 2016-11-19 15:40 | DRG 940 ==
LOC: F3N 09:57 → OBSVTOIN 12:32 → F3E 13:41
PROVIDERS: ADMIT Surgery; ATTEND Surgery
PROC: 0HRKX74 Replacement of Right Lower Leg Skin with Autologous Tissue Substitute, Partial Thickness, External Approach (ICD-10-PCS; principal; 2016-11-07 11:15)
PROC: 0YB Anatomical Regions, Lower Extremities, Excision (ICD-10-PCS; principal; 2016-11-07 11:15)
DX: Z48.1 Encounter for planned postprocedural wound closure (principal); L97.211 Non-pressure chronic ulcer of right calf limited to breakdown of skin
CPT/HCPCS: 97116-GP; 97161-GP; G8978-GP-CJ; G8979-GP-CI; J0171; J0690; J1100; J1170; J1650; J2001; J2250; J2405; J2704; J2765; J2780; J3010

== ENCOUNTER 2016-12-25 08:33 | Inpatient (IN) | payer OTHER, MEDICAID ==
[~2016-12-25 08:33] MED LIST changes: +THROMBIN (BOVINE) 20,000 UNIT SPRAY TP ONE; -THROMBIN (RECOMBINANT) 20,000 UNIT SPRAY TP ONE
[2016-12-25] MEDS ORDERED: CEFAZOLIN 2 GM/DEXTROSE/100 ML BAG IV ONE (09:40)
[2016-12-25] MEDS ORDERED: LIDOCAINE 1% 5 ML SDV ID PRN (09:44)
[2016-12-25] MEDS ORDERED: LR 1,000 ML IV ONE (09:44)
[2016-12-25] MEDS ORDERED: MIDAZOLAM 2 MG/2 ML VIAL ONE (09:50)
[2016-12-25] MEDS ORDERED: PROPOFOL 200 MG/20 ML VIAL ONE (10:00)
[2016-12-25] MEDS ORDERED: fentaNYL 100 MCG/2 ML INJ ONE ×2 (10:00→10:24)
[2016-12-25] MEDS ORDERED: DEXAMETHASONE 4 MG/ML VIAL ONE (10:02)
[2016-12-25] MEDS ORDERED: LIDOCAINE 2% 5 ML SDV ONE (10:04)
[2016-12-25] MEDS ORDERED: MINERAL OIL 10 ML VIAL TP ONE (10:15)
[2016-12-25] MEDS ORDERED: PHENYLEPHRINE HCL 100 MCG/ML SYR ONE (10:16)
[2016-12-25] MEDS ORDERED: KETOROLAC 30 MG/1 ML SDV ONE (10:44)
[2016-12-25] MEDS ORDERED: ACETAMINOPHEN 325 MG TAB PO PRN (11:13)
[2016-12-25] MEDS ORDERED: HYDROCODONE/APAP 5/325 TAB PO PRN (11:13)
[2016-12-25] MEDS ORDERED: ONDANSETRON 4 MG/2 ML VIAL IVP PRN (11:13)
[2016-12-25] MEDS ORDERED: HYDROmorphONE/DILAUDID 1 MG/ML SYR IVP PRN (11:13)
[2016-12-25] MEDS ORDERED: ONDANSETRON DISINTEGRATING 4 MG TAB PO PRN (11:13)
--- NOTE | 2016-12-25 11:13 | POSTOPPROG ---
Post Op Note Date of Operation: 12/25/16 Surgeon: Georges Wolfe Anesthesiologist: Manuelito Anesthesia: GET(General Endotracheal) Pre-op Diagnosis: non healing RLE wound Post-op Diagnosis: same Procedure: STSG to RLE Findings: 6x4cm area successfully grafted, R thigh donor Inf/Abcess present in the surg proc area at time of surgery?: No EBL: Minimal Drains: Wound Vac
--- NOTE | 2016-12-25 11:52 | GOP ---
[f rep st] OPERATIVE REPORT DATE OF OPERATION: 12/25/2016 SURGEON: Georges Wolfe MD PARTS DEPARTMENT MANAGER: None. ANESTHESIA: General endotracheal. ANESTHESIOLOGIST: Dr. Billings PREOPERATIVE DIAGNOSIS: Nonhealing right lower extremity wound. POSTOPERATIVE DIAGNOSIS: Nonhealing right lower extremity wound. PROCEDURE PERFORMED: Split-thickness skin graft to right lower extremity wound measuring 4 x 6 cm, right thigh donor site. FINDINGS: The 4 x 6 area was successfully debrided. All previous granulation tissue was taken down to a nice even wound bed. A 4 cm area of right thigh donor skin was successfully taken, meshed paddy ropriately, attached to the site, and covered with a wound VAC. SPECIMENS: None. ESTIMATED BLOOD LOSS: 5 cc. DESCRIPTION OF PROCEDURE: The patient was greeted in the preoperative suite. Once again, risks, be nefits, and alternatives were discussed. Consent was signed. He was then brought back to the opera tive suite, placed on the OR table in the supine position. After all anesthesia machines were on an d functioning, [employer] time-out was performed. Antibiotics were given on-call to the operating room. The right lower extremity was then prepped and draped in the typical sterile fa shion. I first addressed the right lower extremity wound, where he did have some minimal residual h ypertrophic granulation tissue. This was removed sharply down to good viable bleeding wound bed. H emostasis was achieved with gentle pressure and spray thrombin. Once this was done, I turned my att ention toward the right thigh. Using the dermatome set at 0.11 depth, a 2-inch width was selected f or approximately 4 cm in total length. This was removed, placed in the mesher appropriately. It wa s then attached to the right lower extremity wound, attached to the skin edges with muari, over wh ich a piece of Adaptic Touch, black wound VAC sponge were successfully placed to protect the graft i tself. Drapes were applied. It was attached to a suction at 125 mmHg without any apparent leaks. The right thigh donor site was anesthetized with 0.5% Marcaine. Obtained hemostasis with gentle pre ssure and spray thrombin. A sterile dressing was placed over this as well. The patient was then ex tubated in the operative suite and taken to the postanesthesia unit in satisfactory condition. DRAINS: Wound VAC to graft site. COUNTS: All counts were reported as correct x2. /[id number]/MODL
[2016-12-25] MEDS: SENNOSIDES 1 TAB PO SCH (20:02)
[2016-12-26] MEDS: LEVOTHYROXINE 25 MCG TAB PO SCH (05:20)
[2016-12-26 05:24] LABS: % IMMATURE GRANULYOCYTES 0.5 % (0.0-1.1); ABSOLUTE IMMATURE GRANULOCYTES 0.06 10^3/uL (0.00-0.10); ADD DIFF? NO; ADD MORPH? NO; ADD SCAN? NO; ATYPICAL LYMPHOCYTE FLAG 10 (0-99); FRAGMENT RBC FLAG 0 (0-99); HEMATOCRIT 34.8 % (40.0-51.0); HEMOGLOBIN 11.4 g/dL (13.7-17.5); LEFT SHIFT FLG 0 (0-99); LIPEMIA HEMOLYSIS FLAG 80 (0-99); MEAN CELL HEMOGLOBIN 27.6 pg (27.9-34.1); MEAN CELL HEMOGLOBIN CONCENTR. 32.8 g/dL (32.4-36.7); MEAN CELL VOLUME 84.3 fL (81.5-99.8); MEAN PLATELET VOLUME 8.6 fL (8.7-11.7); PLATELET CLUMPS FLAG 10 (0-99); PLATELET COUNT 262 10^3/uL (150-400); RED BLOOD CELL COUNT 4.13 10^6/uL (4.40-6.38); RED CELL DISTRIBUTION WIDTH 14.5 % (11.5-15.2)
[2016-12-26] MEDS: QUEtiapine FUMARATE 25 MG TAB PO SCH (08:09)
[2016-12-26] MEDS: risperiDONE 1 MG TAB PO SCH (08:09)
[2016-12-26] MEDS: SENNOSIDES 1 TAB PO SCH ×2 (08:09→20:05)
--- NOTE | 2016-12-26 10:09 | SOAPPROG ---
HERNESTO Progress Note Assessment/Plan: Assessment/Plan: - 56yo M POD#1 s/p STSG to RLE - neuro: AO. home psych meds re-ordered, pain is controlled. - Tolerating regular diet - RLE: R thigh with saturated dressing, removed and replaced. VAC to lower leg, holding suction appropriately, minimal drainage. - Plan for VAC over the weekend, will remove early next week. 12/26/16 10:07 Subjective: Feels good, some RLE pain Objective: Vital Signs Temp Pulse Resp BP Pulse Ox 36.7 C 85 18 126/80 H 97 12/26/16 08:00 12/26/16 09:21 12/26/16 08:00 12/26/16 08:00 12/26/16 09:21 Laboratory Results 12/26/16 05:09 12/25/16 12/26/16 12/27/16 05:59 05:59 05:59 Intake Total 2460 Output Total 1710 Balance 750 ICD10 Worksheet Patient Problems: Problems Problem Status Onset Non-healing ulcer of lower leg Acute Schizophrenia Acute Cellulitis Acute Knee contusion Acute - ICD10 Problem Qualifiers (1) Non-healing ulcer of lower leg Qualifiers: Laterality: L Non-pressure ulcer stage: N (2) Schizophrenia Qualifiers: Schizophrenia type: S
[2016-12-27] MEDS: LEVOTHYROXINE 25 MCG TAB PO SCH (05:54)
[2016-12-27] MEDS: SENNOSIDES 1 TAB PO SCH ×2 (08:56→20:15)
[2016-12-27] MEDS: risperiDONE 1 MG TAB PO SCH (08:56)
[2016-12-27] MEDS: QUEtiapine FUMARATE 25 MG TAB PO SCH (08:56)
--- NOTE | 2016-12-27 14:10 | SOAPPROG ---
SOAP Progress Note Assessment/Plan: Assessment: WOUND VAC REPAIRED LAST NIGHT BUT NOW FUNCTIONING WELL / DONOR AND GRAFT SITES LOOK GOOD Plan: DC WOUND VAC POSSIBLY Thursday12/27/16 14:09 Objective: Vital Signs Temp Pulse Resp BP Pulse Ox 37.1 C 87 16 119/66 95 12/27/16 12:00 12/27/16 12:00 12/27/16 12:00 12/27/16 12:00 12/27/16 12:00 Laboratory Results 12/26/16 05:09 12/26/16 12/27/16 12/28/16 05:59 05:59 05:59 Intake Total 2460 Output Total 1710 500 940 Balance 458 -754 -769 ICD10 Worksheet Patient Problems: Problems Problem Status Onset Non-healing ulcer of lower leg Acute Schizophrenia Acute Cellulitis Acute Knee contusion Acute
[2016-12-27] MEDS: IBUPROFEN 200 MG TAB PO PRN (20:15)
[2016-12-28] MEDS: LEVOTHYROXINE 25 MCG TAB PO SCH (05:23)
[2016-12-28] MEDS: SENNOSIDES 1 TAB PO SCH ×2 (09:36→20:01)
[2016-12-28] MEDS: risperiDONE 1 MG TAB PO SCH (09:36)
[2016-12-28] MEDS: IBUPROFEN 200 MG TAB PO PRN (09:36)
[2016-12-28] MEDS: QUEtiapine FUMARATE 25 MG TAB PO SCH (09:36)
--- NOTE | 2016-12-28 12:46 | SOAPPROG ---
SOAP Progress Note Assessment/Plan: Assessment: WOUND VAC REPAIRED LAST NIGHT BUT NOW FUNCTIONING WELL / DONOR AND GRAFT SITES LOOK GOOD Plan: DC WOUND VAC POSSIBLY Thursday12/27/16 14:09 12/28/16 12:46 TOTALLY STABLE/ WOUND VAC IN PLACE / DONOR SITE OKAY Objective: Vital Signs Temp Pulse Resp BP Pulse Ox 36.6 C 93 16 113/65 94 12/28/16 11:45 12/28/16 11:45 12/28/16 11:45 12/28/16 11:45 12/28/16 11:45 Laboratory Results 12/26/16 05:09 12/27/16 12/28/16 12/29/16 05:59 05:59 05:59 Intake Total 2480 Output Total 500 1565 Balance -500 915 ICD10 Worksheet Patient Problems: Problems Problem Status Onset Non-healing ulcer of lower leg Acute Schizophrenia Acute Cellulitis Acute Knee contusion Acute
[2016-12-29] MEDS: LEVOTHYROXINE 25 MCG TAB PO SCH (05:18)
--- NOTE | 2016-12-29 09:22 | SOAPPROG ---
SOAP Progress Note Assessment/Plan: Assessment/Plan: - 56yo M POD#4 s/p STSG to RLE - neuro: AO. home psych meds re-ordered, pain is controlled. - Tolerating regular diet - RLE: R thigh with saturated dressing, removed and replaced. VAC to lower leg, holding suction appropriately, minimal drainage, not foul smelling this time as well. - Plan for VAC one additional day, will remove tomorrow. Will likely be ready for dc back to [facility] tomorrow as well, will start transition paperwork today. 12/26/16 10:07 12/29/16 09:21 Subjective: Doing well, pain controlled. Objective: Vital Signs Temp Pulse Resp BP Pulse Ox 36.9 C 82 16 121/70 H 96 12/29/16 07:41 12/29/16 07:41 12/29/16 07:41 12/29/16 07:41 12/29/16 07:41 Laboratory Results 12/26/16 05:09 12/28/16 12/29/16 12/30/16 05:59 05:59 05:59 Intake Total 2480 1500 400 Output Total 1565 1900 300 Balance 915 -400 100 ICD10 Worksheet Patient Problems: Problems Problem Status Onset Non-healing ulcer of lower leg Acute Schizophrenia Acute Cellulitis Acute Knee contusion Acute - ICD10 Problem Qualifiers (1) Non-healing ulcer of lower leg Qualifiers: Laterality: L Non-pressure ulcer stage: N (2) Schizophrenia Qualifiers: Schizophrenia type: S
[2016-12-29] MEDS: risperiDONE 1 MG TAB PO SCH (10:13)
[2016-12-29] MEDS: SENNOSIDES 1 TAB PO SCH ×2 (10:13→20:01)
[2016-12-29] MEDS: QUEtiapine FUMARATE 25 MG TAB PO SCH (10:14)
[2016-12-30] MEDS: LEVOTHYROXINE 25 MCG TAB PO SCH (05:20)
[2016-12-30] MEDS: QUEtiapine FUMARATE 25 MG TAB PO SCH (08:04)
[2016-12-30] MEDS: risperiDONE 1 MG TAB PO SCH (08:04)
[2016-12-30] MEDS: SENNOSIDES 1 TAB PO SCH (08:04)
--- NOTE | 2016-12-30 08:58 | PDIAF ---
- Diagnosis Diagnosis: Non healing right lower leg wound Code Status: Full Code - Medication Management Discharge Medications: Medications to Continue on Transfer Hydrocodone/APAP 5/325 [[place]es 5/325 (*)] 1 tab PO Q4H PRN 11/05/16 [Last Taken 12/24/16] Levothyroxine [Synthroid 25 mcg (*)] 25 mcg PO DAILY06 #0 tab 11/19/16 [Last Taken 12/25/16 06:00] Acetaminophen [Tylenol 325mg (*)] 650 mg PO Q4HRS PRN 12/24/16 [Last Taken 12/24] QUEtiapine FUMARATE [Seroquel 100 mg (*)] 75 mg PO DAILY 12/24/16 [Last Taken ] Sennosides [Senokot] 1 each PO BID 12/24/16 [Last Taken 12/24/16] risperiDONE [Risperdal] 3 mg PO DAILY 12/24/16 [Last Taken 12/24/16] Hydrocodone/APAP 5/325 [[place] 5/325 (*)] 1 - 2 tab PO Q4HRS PRN #0 tab 12/30/16 [Last Taken Unknown] Discharge Medications: Refer to the Discharge Home Medication list for PRN reason. - Orders Services needed: Registered Nurse Diet Recommendation: no restrictions on diet Diet Texture: Regular Texture Diet Wound Care Instructions: change right lower leg dressing daily non-adherent, gauze, coban to protect - Follow Up Care Current Providers and Referrals: ROB MIX [Primary Care Provider] -
--- NOTE | 2016-12-30 08:59 | PDIAF ---
- Diagnosis Diagnosis: Non healing right lower leg wound Code Status: Full Code - Medication Management Discharge Medications: Medications to Continue on Transfer Hydrocodone/APAP 5/325 [Jackson 5/325 (*)] 1 tab PO Q4H PRN 11/05/16 [Last Taken 12/24/16] Levothyroxine [Synthroid 25 mcg (*)] 25 mcg PO DAILY06 #0 tab 11/19/16 [Last Taken 12/25/16 06:00] Acetaminophen [Tylenol 325mg (*)] 650 mg PO Q4HRS PRN 12/24/16 [Last Taken 12/24] QUEtiapine FUMARATE [Seroquel 100 mg (*)] 75 mg PO DAILY 12/24/16 [Last Taken ] Sennosides [Senokot] 1 each PO BID 12/24/16 [Last Taken 12/24/16] risperiDONE [Risperdal] 3 mg PO DAILY 12/24/16 [Last Taken 12/24/16] Hydrocodone/APAP 5/325 [Jackson 5/325 (*)] 1 - 2 tab PO Q4HRS PRN #0 tab 12/30/16 [Last Taken Unknown] Discharge Medications: Refer to the Discharge Home Medication list for PRN reason. - Orders Services needed: Registered Nurse Diet Recommendation: no restrictions on diet Diet Texture: Regular Texture Diet Wound Care Instructions: change right lower leg dressing daily non-adherent, gauze, coban to protect - Follow Up Care Current Providers and Referrals: ROB MIX [Primary Care Provider] - Georges Wolfe MD [Medical Doctor] - follow up in 1 week (I want to see in one week for wound eval and to remove mauri. )
--- NOTE | 2016-12-30 10:20 | GDS ---
[f rep st] DISCHARGE SUMMARY DISCHARGE DIAGNOSES: 1. Nonhealing right lower extremity wound. 2. Schizophrenia. HOSPITAL COURSE: The patient was admitted for his elective procedure, which he underwent uneventful ly. He was taken to the postanesthesia unit and then transferred to the general medical floor witho ut issue. His diet was advanced and well tolerated. His pain was well controlled. He had a wound VAC over the area for 5 days, and it was taken down on the day of discharge with what appeared to be 100% take of the grafted site. It was rewrapped with a nonadherent pressure dressing, for which he was discharged home with. DISCHARGE MEDICATIONS: All home medications restarted. The only new medication was [place] as needed for pain. DISPOSITION: Back to [place]. FOLLOWUP: He will follow up with me in 1 week for a wound check. /[id number]/MODL
[2016-12-30 11:47] VITALS: BP 105/73; PULSE 115; RESP 16; TEMP 97.7; O2SAT 94
== END 2016-12-30 14:05 | DRG 940 ==
LOC: F3E 08:33
PROVIDERS: ADMIT Surgery; ATTEND Surgery
DX: Z48.1 Encounter for planned postprocedural wound closure (principal); L97.211 Non-pressure chronic ulcer of right calf limited to breakdown of skin; F20.9 Schizophrenia, unspecified
CPT/HCPCS: 97116-GP; 97161-GP; 97165-GO; 97535-GO; G8978-GP-CI; G8979-GP-CH; G8987-GO-CI; G8988-GO-CI; J0171; J0690; J1100; J1885; J2250; J2370; J2704; J3010

== ENCOUNTER 2017-01-30 00:06 | Emergency (ER) | payer OTHER, MEDICAID ==
--- NOTE | 2017-01-30 00:14 | EDPHY ---
H & P HPI/ROS: HPI CHIEF COMPLAINT: Nausea x2 weeks "I was given methamphetamine at [facility]" HISTORY OF PRESENT ILLNESS: This patient very pleasant 56-year-old male who resides at [facility], called 911 this [place] from [place] for 2 weeks of nausea and states he was given methamphetamine at [facility]. He denies any pain worse specifically denies chest pain or shortness of breath denies abdominal pain. He tells me he has been vomiting over the past 2 weeks. He has had nausea. Upon arrival here in emergency room is resting comfortably has normal vital signs he denies any abdominal pain. Does admit to feeling nauseous. Denies chest pain or shortness of breath. Past Medical History: Schizophrenia, chronic right lower extremity wound Past Surgical History: Leg surgery (nec Fasc) Social History: Lives at [facility] Family History: Noncontributory ROS REVIEW OF SYSTEMS: A comprehensive 10 point review of systems is otherwise negative aside from elements mentioned in the history of present illness. Exam Constitutional appears well nontoxic, triage nursing summary reviewed, vital signs reviewed, awake/alert. (VITALS REVIEWED HR 135) Eyes normal conjunctivae and sclera, EOMI, PERRLA. HENT normal inspection, atraumatic, moist mucus membranes, no epistaxis, neck supple/ no meningismus, no raccoon eyes. Respiratory clear to auscultation bilaterally, normal breath sounds, no respiratory distress, no wheezing. Cardiovascular Tachy, regular rhythm, no murmur, no edema, distal pulses normal. Gastrointestinal soft, non-tender, no rebound, no guarding, normal bowel sounds, no distension, no pulsatile mass. Genitourinary no CVA tenderness. Musculoskeletal no midline vertebral tenderness, full range of motion, no calf swelling, no tenderness of extremities, no meningismus, good pulses, neurovascularly intact. Skin pink, warm, & dry, no rash, skin atraumatic. Neurologic awake, alert and oriented x 3, AAOx3, moves all 4 extremities equally, motor intact, sensory intact, CN II-XII intact, normal cerebellar, normal vision, normal speech. Psychiatric normal mood/affect. Heme/Lymph/Immune no lymphadenopathy. Differential Diagnosis: Includes but is not limited to in a particular order, electrolyte disturbance, dehydration, methamphetamine intoxication Medical Decision Making: Plan for this patient IV establishment, IV fluid bolus , IV Zofran for nausea, check electrolytes drug screen. Re-evaluate. Re-evaluation: 0130: It was noted when patient arrived his heart rate is 135 beats per minute. However currently this time he is heart rate is 95. 0157AM: Re-evaluation at this time patient resting comfortably. Abdomen soft. No vomiting here. Does feel better after IV Zofran and a L of fluid. Blood work has been reviewed and is reassuring. Urine drug screen is pending at this time. 0221AM: Patient ambulated well to the bathroom. Feeling much better after IV Zofran. Patient is comfortable going home. He is comfortable discharge planning. Denies chest pain or shortness of breath denies abdominal pain he has been sleeping here in the ER. CT scan of the abdomen pelvis with IV contrast The results of the study are negative for acute inflammatory process The study was read by Dr. Parada. I viewed the images myself on the PACS system. 0350AM: I did review this patient's CT scan and blood work is all reassuring. Negative for methamphetamine. Patient is comfortable being discharged. He has been sleeping here in the emergency room no vomiting and abdomen remained soft. Source: Patient, EMS - Medical/Surgical History Hx Asthma: No Hx Chronic Respiratory Disease: No Hx Diabetes: No Hx Cardiac Disease: Yes Hx Renal Disease: No Hx Cirrhosis: No Hx Alcoholism: No Hx HIV/AIDS: No Hx Splenectomy or Spleen Trauma: No Other PMH: HTN. PS. legally blind - Social History Smoking Status: Light smoker Constitutional: Initial Vital Signs Temperature (C) 36.9 C 01/30/17 00:23 Heart Rate 135 H 01/30/17 00:23 Respiratory Rate 20 01/30/17 00:23 Blood Pressure 160/91 H 01/30/17 00:23 O2 Sat (%) 96 01/30/17 00:23 O2 Delivery Mode Room Air Allergies/Adverse Reactions: No Known Allergies Allergy (Verified 11/05/16 15:56) Home Medications: Medication Instructions Recorded Hydrocodone/APAP 5/325 [[place] 1 tab PO Q4H PRN 11/05/16 5/325 (*)] Levothyroxine [Synthroid 25 mcg 25 mcg PO DAILY06 #0 tab 11/19/16 (*)] Acetaminophen [Tylenol 325mg (*)] 650 mg PO Q4HRS PRN 04/26/17 QUEtiapine FUMARATE [Seroquel 100 75 mg PO DAILY 12/24/16 mg (*)] Sennosides [Senokot] 1 each PO BID 12/24/16 risperiDONE [Risperdal] 3 mg PO DAILY 12/24/16 Hydrocodone/APAP 5/325 [[place] 1 - 2 tab PO Q4HRS PRN #0 tab 12/30/16 5/325 (*)] Medical Decision Making - Data Points Laboratory Results: Laboratory Results 01/30/17 00:27 01/30/17 00:27 01/30/17 01/30/17 01/30/17 02:00 00:27 00:27 WBC 12.61 10^3/uL H 10^3/uL (3.80-9.50) RBC 4.91 10^6/uL 10^6/uL (4.40-6.38) Hgb 13.9 g/dL g/dL (13.7-17.5) Hct 42.0 % % (40.0-51.0) MCV 85.5 fL fL (81.5-99.8) MCH 28.3 pg pg (27.9-34.1) MCHC 33.1 g/dL g/dL (32.4-36.7) RDW 14.2 % % (11.5-15.2) Plt Count 274 10^3/uL 10^3/uL (150-400) MPV 9.1 fL fL (8.7-11.7) Neut % (Auto) 73.7 % % (39.3-74.2) Lymph % (Auto) 16.7 % % (15.0-45.0) [place] % (Auto) 6.7 % % (4.5-13.0) Eos % (Auto) 1.7 % % (0.6-7.6) Baso % (Auto) 0.6 % % (0.3-1.7) Nucleat RBC Rel Count 0.0 % % (0.0-0.2) Absolute Neuts (auto) 9.31 10^3/uL H 10^3/uL (1.70-6.50) Absolute Lymphs (auto) 2.11 10^3/uL 10^3/uL (1.00-3.00) Absolute Monos (auto) 0.84 10^3/uL H 10^3/uL (0.30-0.80) Absolute Eos (auto) 0.21 10^3/uL 10^3/uL (0.03-0.40) Absolute Basos (auto) 0.07 10^3/uL 10^3/uL (0.02-0.10) Absolute Nucleated RBC 0.00 10^3/uL 10^3/uL (0-0.01) Immature Gran % 0.6 % % (0.0-1.1) Immature Gran # 0.07 10^3/uL 10^3/uL (0.00-0.10) Sodium 142 mEq/L mEq/L (134-144) Potassium 4.6 mEq/L mEq/L (3.5-5.2) Chloride 106 mEq/L mEq/L (97-110) Carbon Dioxide 24 mEq/l mEq/l (22-31) Anion Gap 12 mEq/L mEq/L (8-16) BUN 23 mg/dL mg/dL (7-23) Creatinine 0.9 mg/dL mg/dL (0.7-1.3) Estimated GFR > 60 Glucose 130 mg/dL H mg/dL (70-100) Calcium 10.0 mg/dL mg/dL (8.5-10.4) Total Bilirubin 0.5 mg/dL mg/dL (0.1-1.4) Conjugated Bilirubin 0.5 mg/dL mg/dL (0.0-0.5) Unconjugated Bilirubin 0.0 mg/dL mg/dL (0.0-1.1) AST 22 IU/L IU/L (17-59) ALT 22 IU/L IU/L (21-72) Alkaline Phosphatase 86 IU/L IU/L (38-126) Troponin I < 0.012 ng/mL ng/mL (0-0.034) Total Protein 7.7 g/dL g/dL (6.3-8.2) Albumin 4.9 g/dL g/dL (3.5-5.0) Lipase 75.0 IU/L IU/L (23-300) Urine Color YELLOW Urine Appearance HAZY Urine pH 5.0 (5.0-7.5) Ur Specific [place] 1.016 (1.002-1.030) Urine Protein NEGATIVE (NEGATIVE) Urine Ketones NEGATIVE (NEGATIVE) Urine Blood NEGATIVE (NEGATIVE) Urine Nitrate NEGATIVE (NEGATIVE) Urine Bilirubin NEGATIVE (NEGATIVE) Urine Urobilinogen NEGATIVE EU EU (0.2-1.0) Ur Leukocyte Esterase NEGATIVE (NEGATIVE) Urine Glucose NEGATIVE (NEGATIVE) Urine Opiates Screen NEGATIVE (NEGATIVE) Urine Barbiturates NEGATIVE (NEGATIVE) Ur Phencyclidine Scrn NEGATIVE (NEGATIVE) Ur Amphetamine Screen NEGATIVE (NEGATIVE) U Benzodiazepines Scrn NEGATIVE (NEGATIVE) Urine Cocaine Screen NEGATIVE (NEGATIVE) U Marijuana (THC) Screen NEGATIVE (NEGATIVE) Medications Given: Discontinued Medications Sodium Chloride (Ns) 1,000 mls @ 0 mls/hr IV ONCE ONE PRN Reason: Wide Open Stop: 01/30/17 00:22 Last Admin: 01/30/17 00:28 Dose: 1,000 mls Sodium Chloride (Ns) 1,000 mls @ 0 mls/hr IV ONCE ONE PRN Reason: Wide Open Stop: 01/30/17 02:24 Last Admin: 01/30/17 02:31 Dose: 1,000 mls Ondansetron HCl (Zofran) 4 mg IVP EDNOW ONE Stop: 01/30/17 00:22 Last Admin: 01/30/17 00:28 Dose: 4 mg Departure - Departure Disposition: Home, Routine, Self-Care Clinical Impression: Nausea Condition: Good Instructions: Acute Nausea and Vomiting (ED) Additional Instructions: 1. Return emergency room if develops any worsening symptoms questions or concerns. Referrals: Patient,NotPresent [Unknown] - As per Instructions
[2017-01-30] MEDS ORDERED: NS 1,000 ML IV ONE ×2 (00:21→02:23)
[2017-01-30] MEDS ORDERED: ONDANSETRON 4 MG/2 ML VIAL IVP ONE (00:21)
[2017-01-30 00:50] LABS: % IMMATURE GRANULYOCYTES 0.6 % (0.0-1.1); ABSOLUTE IMMATURE GRANULOCYTES 0.07 10^3/uL (0.00-0.10); ADD DIFF? NO; ADD MORPH? NO; ADD SCAN? NO; ATYPICAL LYMPHOCYTE FLAG 10 (0-99); FRAGMENT RBC FLAG 0 (0-99); HEMOGLOBIN 13.9 g/dL (13.7-17.5); LEFT SHIFT FLG 0 (0-99); LIPEMIA HEMOLYSIS FLAG 80 (0-99); MEAN CELL HEMOGLOBIN 28.3 pg (27.9-34.1); MEAN CELL HEMOGLOBIN CONCENTR. 33.1 g/dL (32.4-36.7); MEAN CELL VOLUME 85.5 fL (81.5-99.8); MEAN PLATELET VOLUME 9.1 fL (8.7-11.7); PLATELET CLUMPS FLAG 10 (0-99); PLATELET COUNT 274 10^3/uL (150-400); RED BLOOD CELL COUNT 4.91 10^6/uL (4.40-6.38); RED CELL DISTRIBUTION WIDTH 14.2 % (11.5-15.2)
[2017-01-30 01:11] LABS: ALANINE AMINOTRANSFERASE 22 IU/L (21-72); ALBUMIN 4.9 g/dL (3.5-5.0); ALKALINE PHOSPHATASE 86 IU/L (38-126); ANION GAP 12 mEq/L (8-16); ASPARTATE AMINOTRANSFERASE 22 IU/L (17-59); BILIRUBIN,TOTAL 0.5 mg/dL (0.1-1.4); BILIRUBIN-CONJUGATED 0.5 mg/dL (0.0-0.5); CARBON DIOXIDE 24 mEq/l (22-31); CHLORIDE 106 mEq/L (97-110); CREATININE 0.9 mg/dL (0.7-1.3); GLOMERULAR FILTRATION RATE > 60; GLUCOSE 130 mg/dL (70-100); POTASSIUM 4.6 mEq/L (3.5-5.2); SODIUM 142 mEq/L (134-144); TOTAL PROTEIN 7.7 g/dL (6.3-8.2)
[2017-01-30 01:22] LABS: TROPONIN I < 0.012 ng/mL (0-0.034)
[2017-01-30 02:09] LABS: COLOR YELLOW; LEUKOCYTE ESTERASE,URINE NEGATIVE (NEGATIVE); NITRITE,URINE NEGATIVE (NEGATIVE)
[2017-01-30] MEDS ORDERED: IOPAMIDOL (ISOVUE-300) 100 ML BTL ONE (02:25)
[2017-01-30 04:24] VITALS: BP 144/86; PULSE 80; RESP 12; TEMP 98.2; O2SAT 98
== END 2017-01-30 04:21 | disposition home or self-care (01) ==
LOC: EDUNIT#
DX: R11.0 Nausea (principal); I10 Essential (primary) hypertension; F17.200 Nicotine dependence, unspecified, uncomplicated
CPT/HCPCS: 74177; J2405; Q9967; 80305; 96374